=== PATIENT | male | born 1960 | race Caucasian/White ===

== ENCOUNTER 2016-11-05 15:58 | Inpatient (IN) | payer OTHER ==
[~2016-11-05] VITALS: Ht 170.2 cm; Wt 91.8 kg
[2016-11-05] VITALS (9 sets, daily range): BP systolic 107–165; BP diastolic 67–77; PULSE 88–114; RESP 15–18; TEMP 97.9–98.1; O2SAT 94–100
--- NOTE | 2016-11-05 17:47 | PD ---
HPI Chief Complaint: Edema Time Seen by Provider: 17:45 Travel History International Travel<30 days: No Contact w/Intl Traveler<30days: No Traveled to known affect area: No History of Present Illness HPI 56-year-old male is a chronic alcoholic came to the emergency room since both his legs have started to swell up and his primary care asked them to come to the ER to be checked out. Patient has history of cirrhosis. He drinks 8-10 beers a day. No history of pain. He has history of frequent falls especially when he is intoxicated. Patient started drinking this known and has had 4 beers so far as per his own admission. [facility] Past Medical History Narrative Medical List of his past medical history as reviewed from the nursing note. Social History Tobacco Use: Yes Allergies-Medications (Allergen,Severity, Reaction): Coded Allergies: No Known Allergies (Unverified , 11/05/16) Comments No known drug allergies. Reported Meds & Prescriptions Reported Meds & Active Scripts Active Reported Prilosec (Omeprazole) 20 Mg Cap Unknown Dose PO DAILY Januvia (Sitagliptin Phosphate) 100 Mg Tab 100 Mg PO DAILY Narrative Medication Awaiting for the nurse to do the medical reconciliation. Review of Systems Except as stated in HPI: all other systems reviewed are Neg Physical Exam Narrative GENERAL: Awake, alert, moderate distress, disheveled SKIN: Warm and dry. Ecchymosis bilateral lower extremity. All wound with scabs HEAD: Atraumatic. Normocephalic. EYES: Pupils equal and round. No scleral icterus. No injection or drainage. ENT: No nasal bleeding or discharge. Mucous membranes pink and moist. NECK: Trachea midline. No JVD. CARDIOVASCULAR: Regular rate and rhythm. No murmur appreciated. RESPIRATORY: No accessory muscle use. Clear to auscultation. Breath sounds equal bilaterally. GASTROINTESTINAL: Abdomen soft, non-tender, distended with possible ascites. Hepatic and splenic margins not palpable. MUSCULOSKELETAL: No obvious deformities. No clubbing. No cyanosis. Bilateral 3 + pedal edema NEUROLOGICAL: Awake and alert. No obvious cranial nerve deficits. Motor grossly within normal limits. Normal speech. PSYCHIATRIC: Appropriate mood and affect; insight and judgment normal. Data Data Last Documented VS Vital Signs Date Time Temp Pulse Resp B/P Pulse Ox O2 Delivery O2 Flow Rate FiO2 11/05/16 20:43 97.9 104 18 107/73 96 11/05/16 18:26 Room Air Orders Complete Blood Count With Diff (11/05/16 17:50) Comprehensive Metabolic Panel (11/05/16 17:50) Prothrombin Time / Inr (Pt) (11/05/16 17:50) Ct Abd/Pel W/O Iv Contrast (11/05/16 17:50) Iv Access Insert/Monitor (11/05/16 17:50) Ecg Monitoring (11/05/16 17:50) Oximetry (11/05/16 17:50) Sodium Chloride 0.9% Flush (Ns Flush) (11/05/16 18:00) Electrocardiogram (11/05/16 17:50) Direct Bilirubin (11/05/16 17:50) Thiamine Inj (Thiamine Inj) (11/05/16 18:00) B-Type Natriuretic Peptide (11/05/16 17:50) Troponin I (11/05/16 17:50) Type And Screen (11/05/16 19:13) Red Blood Cells (Rbc) (11/05/16 19:13) Blood Product Administration .UPON TRANSFUSION (11/05/16 19:13) Sodium Chlor 0.9% 250 Ml Inj (Ns 250 Ml (11/05/16 19:15) Admit Order (Ed Use Only) (11/05/16 20:43) Platelet Pheresis (11/05/16 20:44) Blood Product Administration .UPON TRANSFUSION (11/05/16 20:44) Sodium Chlor 0.9% 250 Ml Inj (Ns 250 Ml (11/05/16 20:45) Labs Laboratory Tests Test 11/05/16 11/05/16 11/05/16 18:35 19:34 19:43 White Blood Count 4.7 TH/MM3 Red Blood Count 2.55 MIL/MM3 Hemoglobin 5.8 GM/DL Hematocrit 19.3 % Mean Corpuscular Volume 75.7 FL Mean Corpuscular Hemoglobin 22.9 PG Mean Corpuscular Hemoglobin 30.2 % Concent Red Cell Distribution Width 19.6 % Platelet Count 44 TH/MM3 Mean Platelet Volume 9.1 FL Neutrophils (%) (Auto) 51.5 % Lymphocytes (%) (Auto) 36.0 % Monocytes (%) (Auto) 10.2 % Eosinophils (%) (Auto) 1.1 % Basophils (%) (Auto) 1.2 % Neutrophils # (Auto) 2.4 TH/MM3 Lymphocytes # (Auto) 1.7 TH/MM3 Monocytes # (Auto) 0.5 TH/MM3 Eosinophils # (Auto) 0.1 TH/MM3 Basophils # (Auto) 0.1 TH/MM3 CBC Comment AUTO DIFF Differential Comment AUTO DIFF CONFIRMED Platelet Estimate LOW Platelet Morphology Comment NORMAL Prothrombin Time 14.5 SEC Prothromb Time International 1.3 RATIO Ratio Sodium Level 142 MEQ/L Potassium Level 3.7 MEQ/L Chloride Level 108 MEQ/L Carbon Dioxide Level 24.2 MEQ/L Anion Gap 10 MEQ/L Blood Urea Nitrogen 8 MG/DL Creatinine 0.97 MG/DL Estimat Glomerular Filtration 80 ML/MIN Rate Random Glucose 149 MG/DL Calcium Level 7.5 MG/DL Total Bilirubin 5.2 MG/DL Direct Bilirubin 3.8 MG/DL Aspartate Amino Transf 101 U/L (AST/SGOT) Alanine Aminotransferase 38 U/L (ALT/SGPT) Alkaline Phosphatase 153 U/L Troponin I 0.04 NG/ML B-Type Natriuretic Peptide 286 PG/ML Total Protein 6.9 GM/DL Albumin 2.4 GM/DL Blood Type B POSITIVE B POSITIVE Antibody Screen NEGATIVE Crossmatch Leukocyte-Reduced Red Blood Cells Blood Bank Comment MDM Medical Decision Making Medical Screen Exam Complete: Yes Emergency Medical Condition: Yes Medical Record Reviewed: Yes Differential Diagnosis Alcoholic Cirrhosis, anasarca secondary to alcoholic cirrhosis Narrative Course 6:35 PM awaiting for the blood test results and the CAT scan to be done and resulted. Patient is getting IM thiamine. Case will be signed over to the oncoming ER physician at 7 PM. 7:16 PM hemoglobin was called from the lab as critical being 5.5. I have ordered 2 units of PRBC transfusion. [facility] will follow-up on the rest of the lab and admit the patient. Critical Care Narrative Aggregate critical care time was 30 minutes. Time to perform other separately billable procedures was not included in the critical care time. My time did not include minutes spent treating any other patients simultaneously or on activities that did not directly contribute to the patient's treatment. The services I provided to this patient were to treat and/or prevent clinically significant deterioration that could result in: Chronic alcoholic, anemia, blood transfusion I provided critical care services requiring my management, as noted below: Chart data review, documentation time, medication orders and management, vital sign assessments/reviewing monitor data, ordering and reviewing lab tests, ordering and interpreting/reviewing x-rays and diagnostic studies, care of the patient and discussion of the patient with the admitting physicians. Procedures EKG Prior to Arrival: Toro Madrigal MD Nov 05, 2016 17:47
[2016-11-05] MEDS ORDERED: SODIUM CHLORIDE 0.9% FLUSH 5 ML FLUSH IVF PRN (18:00)
[2016-11-05] MEDS ORDERED: THIAMINE HCL 200 MG/2 ML VIAL IM ONE (18:00)
[2016-11-05 19:04] LABS: AUTOMATED NEUTROPHIL # 2.4 TH/MM3 (1.8-7.7); BASOPHIL # 0.1 TH/MM3 (0-0.2); BASOPHIL % 1.2 % (0.0-2.0); EOSINOPHIL # 0.1 TH/MM3 (0-0.4); EOSINOPHIL % 1.1 % (0.0-4.0); LYMPHOCYTE # 1.7 TH/MM3 (1.0-4.8); MEAN CELL VOLUME 75.7 FL (80.0-100.0); MEAN CORPUSCULAR HEMOGLOBIN 22.9 PG (27.0-34.0); MEAN CORPUSCULAR HGB CONC 30.2 % (32.0-36.0); MONO % 10.2 % (0.0-8.0); NEUT % 51.5 % (16.0-70.0); PLATELET COUNT 44 TH/MM3 (150-450); RED BLOOD COUNT 2.55 MIL/MM3 (4.50-5.90); RED CELL DISTRIBUTION WIDTH 19.6 % (11.6-17.2); WHITE BLOOD COUNT 4.7 TH/MM3 (4.0-11.0)
[2016-11-05] MEDS ORDERED: PRIL20CA9 PO (19:06)
[2016-11-05] MEDS ORDERED: SITA1TAB2 PO (19:06)
[2016-11-05 19:10] LABS: HEMO FLAGS AUTO DIFF
[2016-11-05 19:13] LABS: HEMATOCRIT 19.3 % (39.0-51.0)
[2016-11-05 19:15] LABS: INTERNATIONAL NORMALIZED RATIO 1.3 RATIO; PROTHROMBIN TIME - PATIENT 14.5 SEC (9.8-11.6)
[2016-11-05] MEDS ORDERED: SODIUM CHLOR 0.9% 250 ML INJ 250 ML IV ONE ×2 (19:15→20:45)
--- NOTE | 2016-11-05 19:22 | RADRPT ---
EXAM DATE/TIME: 11/05/2016 18:55 [facility] COMPARISON: No previous studies available for comparison. INDICATIONS : Abdominal pain, possible ascites. ORAL CONTRAST: No oral contrast ingested. RADIATION DOSE: 16.67 CTDIvol (mGy) MEDICAL HISTORY : Diabetes mellitus type 2. Hepatitis C. SURGICAL HISTORY : None. ENCOUNTER: Initial ACUITY: 1 week PAIN SCALE: 5/10 LOCATION: Bilateral abdomen TECHNIQUE: Volumetric scanning of the abdomen and pelvis was performed. Using automated exposure control and ad justment of the mA and/or kV according to patient size, radiation dose was kept as low as reasonably achievable to obtain optimal diagnostic quality images. FINDINGS: The heart is enlarged. Small left pleural effusion is noted. There is trace ascites. Liver is free of focal defects. Spleen is prominent. A gallstone is present in a benign-appearing gallbladder. There is adenopathy in the abdomen. The right adrenal gland is normal. The left adrenal gland is ab normal. Right and left kidney is unremarkable. Pelvic contents show only ascites. CONCLUSION: 1. Markedly abnormal CT scan of the abdomen. Lack of intravenous contrast makes delineation of furt her abnormalities difficult. 2. I cannot exclude neoplasm, acute cholecystitis. Doyle Hurt MD FACR on November 05, 2016 at 19:10 Board Certified Radiologist. This report was verified electronically.
[2016-11-05 19:43] LABS: PLATELET ESTIMATE SMEAR LOW (NORMAL); PLATELET MORPHOLOGY NORMAL (NORMAL); SCAN/DIFF AUTO DIFF CONFIRMED
[2016-11-05 19:53] LABS: ANION GAP 10 MEQ/L (5-15); AST (GOT) 101 U/L (15-37); BICARBONATE 24.2 MEQ/L (21.0-32.0); BLOOD UREA NITROGEN 8 MG/DL (7-18); CHLORIDE 108 MEQ/L (98-107); GLOMERULAR FILTRATION RATE 80 ML/MIN (>89); POTASSIUM 3.7 MEQ/L (3.5-5.1); SODIUM (NA) 142 MEQ/L (136-145)
[2016-11-05 19:58] LABS: ALKALINE PHOSPHATASE 153 U/L (45-117); ALT (GPT) 38 U/L (12-78); TOTAL BILIRUBIN ADULT 5.2 MG/DL (0.2-1.0)
--- NOTE | 2016-11-05 20:50 | PD ---
Physical Exam Date Seen by Provider: Nov 05, 2016 Time Seen by Provider: 19:00 Narrative Patient signed out to me by Dr. Burgos and at 7 PM, please see previous history for further information. Laboratory Tests Test 11/05/16 18:35 Red Blood Count 2.55 MIL/MM3 (4.50-5.90) Hemoglobin 5.8 GM/DL (13.0-17.0) Hematocrit 19.3 % (39.0-51.0) Mean Corpuscular Volume 75.7 FL (80.0-100.0) Mean Corpuscular Hemoglobin 22.9 PG (27.0-34.0) Mean Corpuscular Hemoglobin 30.2 % Concent (32.0-36.0) Red Cell Distribution Width 19.6 % (11.6-17.2) Platelet Count 44 TH/MM3 (150-450) Monocytes (%) (Auto) 10.2 % (0.0-8.0) Platelet Estimate LOW (NORMAL) Prothrombin Time 14.5 SEC (9.8-11.6) Chloride Level 108 MEQ/L (98-107) Estimat Glomerular Filtration 80 ML/MIN (>89) Rate Random Glucose 149 MG/DL (74-106) Calcium Level 7.5 MG/DL (8.5-10.1) Total Bilirubin 5.2 MG/DL (0.2-1.0) Direct Bilirubin 3.8 MG/DL (0.0-0.2) Aspartate Amino Transf 101 U/L (15-37) (AST/SGOT) Alkaline Phosphatase 153 U/L (45-117) B-Type Natriuretic Peptide 286 PG/ML (0-100) Albumin 2.4 GM/DL (3.4-5.0) Lab work shows significant anemia and thrombocytopenia. Transfusion of PRBCs and platelets were done in the ER. Patient denies any recent black stools. Rectal exam was done by me which shows no signs of significant masses or obvious bleeding, stool is brown, Hemoccult negative. At this point, the case was discussed with Dr. Ward for admission for further treatment. Data Data Last Documented VS Vital Signs Date Time Temp Pulse Resp B/P Pulse Ox O2 Delivery O2 Flow Rate FiO2 11/05/16 20:43 97.9 104 18 107/73 96 11/05/16 18:26 Room Air Orders Complete Blood Count With Diff (1/14/17 17:50) Comprehensive Metabolic Panel (11/05/16 17:50) Prothrombin Time / Inr (Pt) (11/05/16 17:50) Ct Abd/Pel W/O Iv Contrast (11/05/16 17:50) Iv Access Insert/Monitor (11/05/16 17:50) Ecg Monitoring (11/05/16 17:50) Oximetry (11/05/16 17:50) Sodium Chloride 0.9% Flush (Ns Flush) (11/05/16 18:00) Electrocardiogram (11/05/16 17:50) Direct Bilirubin (11/05/16 17:50) Thiamine Inj (Thiamine Inj) (11/05/16 18:00) B-Type Natriuretic Peptide (11/05/16 17:50) Troponin I (11/05/16 17:50) Type And Screen (11/05/16 19:13) Red Blood Cells (Rbc) (11/05/16 19:13) Blood Product Administration .UPON TRANSFUSION (11/05/16 19:13) Sodium Chlor 0.9% 250 Ml Inj (Ns 250 Ml (11/05/16 19:15) Admit Order (Ed Use Only) (11/05/16 20:43) Platelet Pheresis (11/05/16 20:44) Blood Product Administration .UPON TRANSFUSION (11/05/16 20:44) Sodium Chlor 0.9% 250 Ml Inj (Ns 250 Ml (11/05/16 20:45) Labs Laboratory Tests Test 11/05/16 11/05/16 11/05/16 18:35 19:34 19:43 White Blood Count 4.7 TH/MM3 Red Blood Count 2.55 MIL/MM3 Hemoglobin 5.8 GM/DL Hematocrit 19.3 % Mean Corpuscular Volume 75.7 FL Mean Corpuscular Hemoglobin 22.9 PG Mean Corpuscular Hemoglobin 30.2 % Concent Red Cell Distribution Width 19.6 % Platelet Count 44 TH/MM3 Mean Platelet Volume 9.1 FL Neutrophils (%) (Auto) 51.5 % Lymphocytes (%) (Auto) 36.0 % Monocytes (%) (Auto) 10.2 % Eosinophils (%) (Auto) 1.1 % Basophils (%) (Auto) 1.2 % Neutrophils # (Auto) 2.4 TH/MM3 Lymphocytes # (Auto) 1.7 TH/MM3 Monocytes # (Auto) 0.5 TH/MM3 Eosinophils # (Auto) 0.1 TH/MM3 Basophils # (Auto) 0.1 TH/MM3 CBC Comment AUTO DIFF Differential Comment AUTO DIFF CONFIRMED Platelet Estimate LOW Platelet Morphology Comment NORMAL Prothrombin Time 14.5 SEC Prothromb Time International 1.3 RATIO Ratio Sodium Level 142 MEQ/L Potassium Level 3.7 MEQ/L Chloride Level 108 MEQ/L Carbon Dioxide Level 24.2 MEQ/L Anion Gap 10 MEQ/L Blood Urea Nitrogen 8 MG/DL Creatinine 0.97 MG/DL Estimat Glomerular Filtration 80 ML/MIN Rate Random Glucose 149 MG/DL Calcium Level 7.5 MG/DL Total Bilirubin 5.2 MG/DL Direct Bilirubin 3.8 MG/DL Aspartate Amino Transf 101 U/L (AST/SGOT) Alanine Aminotransferase 38 U/L (ALT/SGPT) Alkaline Phosphatase 153 U/L Troponin I 0.04 NG/ML B-Type Natriuretic Peptide 286 PG/ML Total Protein 6.9 GM/DL Albumin 2.4 GM/DL Blood Type B POSITIVE B POSITIVE Antibody Screen NEGATIVE Crossmatch Leukocyte-Reduced Red Blood Cells Blood Bank Comment [facility] Medical Record Reviewed: Yes Supervised Visit with JAMILAH: No HemaPrompt Test Point of Care Internal Pos. & Neg. Controls: Passed Fecal Specimen Occult Blood: Negative Diagnosis Primary Impression: Severe anemia Additional Impression: THROMBOCYTOPENIA, UNSPECIFIED Admitting Information Admitting Physician Requests: Admit Fredis Alcazar MD Nov 05, 2016 20:50
[2016-11-05] MEDS ORDERED: ONDANSETRON HCL 4 MG/2 ML VIAL IVP PRN (21:15)
[2016-11-05] MEDS ORDERED: NALOXONE HCL 0.4 MG/ML AMP IV PRN (21:15)
[2016-11-05] MEDS ORDERED: SODIUM CHLORIDE 0.9% FLUSH 5 ML FLUSH FLUSH PRN (21:15)
[2016-11-05] MEDS ORDERED: DEXTROSE 50% IN WATER 50 ML VIAL(D50) IV PUSH PRN (21:30)
[2016-11-05] MEDS ORDERED: GLUCAGON 1 MG/ML VIAL OTHER PRN (21:30)
[2016-11-05] MEDS: SODIUM CHLOR 0.45% 1000 ML INJ 1,000 ML IV SCH (22:52)
[2016-11-05] MEDS: SODIUM CHLORIDE 0.9% IV SCH (22:52)
[2016-11-05] MEDS: THIAMINE IV SCH (22:52)
[2016-11-05] MEDS: PANTOPRAZOLE SODIUM 40 MG VIAL IV PUSH SCH (22:52)
[2016-11-06] VITALS (14 sets, daily range): BP systolic 115–158; BP diastolic 63–87; PULSE 84–109; RESP 17–18; TEMP 96.1–99.3; O2SAT 91–98
[2016-11-06 05:18] LABS: BICARBONATE 25.1 MEQ/L (21.0-32.0); POTASSIUM 3.4 MEQ/L (3.5-5.1)
[2016-11-06 05:28] LABS: AUTOMATED NEUTROPHIL # 1.8 TH/MM3 (1.8-7.7); BASOPHIL % 1.4 % (0.0-2.0); EOSINOPHIL # 0.1 TH/MM3 (0-0.4); EOSINOPHIL % 2.1 % (0.0-4.0); HEMATOCRIT 21.4 % (39.0-51.0); LYMPH % 31.9 % (9.0-44.0); LYMPHOCYTE # 1.1 TH/MM3 (1.0-4.8); MEAN CELL VOLUME 74.6 FL (80.0-100.0); MEAN CORPUSCULAR HEMOGLOBIN 23.7 PG (27.0-34.0); MEAN CORPUSCULAR HGB CONC 31.7 % (32.0-36.0); MONO % 10.3 % (0.0-8.0); NEUT % 54.3 % (16.0-70.0); PLATELET COUNT 64 TH/MM3 (150-450); RED BLOOD COUNT 2.87 MIL/MM3 (4.50-5.90); RED CELL DISTRIBUTION WIDTH 19.8 % (11.6-17.2); WHITE BLOOD COUNT 3.3 TH/MM3 (4.0-11.0)
[2016-11-06 05:33] LABS: CALCIUM-PROTEIN CORRECTED 7.7 MG/DL (8.5-10.1)
[2016-11-06 05:43] LABS: HEMO FLAGS AUTO DIFF
[2016-11-06] MEDS: INSULIN ASPART SUPPLEMENTAL SCALE SQ SCH ×4 (07:00→20:50)
[2016-11-06] MEDS ORDERED: FUROSEMIDE 20 MG/2 ML VIAL IV PUSH ONE (07:15)
[2016-11-06] MEDS: SODIUM CHLORIDE 0.9% FLUSH 5 ML FLUSH FLUSH SCH ×2 (09:05→20:50)
[2016-11-06] MEDS: PANTOPRAZOLE SODIUM 40 MG VIAL IV PUSH SCH ×2 (09:05→20:50)
[2016-11-06] MEDS: SODIUM CHLORIDE 0.9% IV SCH (09:14)
[2016-11-06] MEDS: THIAMINE IV SCH (09:14)
[2016-11-06 09:52] LABS: PLATELET ESTIMATE SMEAR LOW (NORMAL); PLATELET MORPHOLOGY NORMAL (NORMAL); SCAN/DIFF AUTO DIFF CONFIRMED; TARGET CELLS 1+ (NORMAL)
[2016-11-06] MEDS ORDERED: LORazepam 1 MG TAB PO PRN ×2 (10:00)
[2016-11-06] MEDS ORDERED: LORazepam 2 MG TAB PO PRN ×2 (10:00)
[2016-11-06] MEDS ORDERED: FLUMAZENIL 0.5 MG/5 ML VIAL IV PUSH PRN ×2 (10:00)
[2016-11-06] MEDS ORDERED: LORazepam 2 MG/ML VIAL IV PUSH PRN ×8 (10:00)
[2016-11-06] MEDS ORDERED: POTASSIUM CHLORIDE 20 MEQ CONTROLLED RELEASE TAB PO ONE (10:15)
--- NOTE | 2016-11-06 10:55 | MH ---
cc: MELIA CORDERO DATE OF ADMISSION: 11/05/[address] Melia Cordero. PRIMARY CARE DOCTOR Dr. Chaves. REASON FOR ADMISSION Swelling of the feet. HISTORY OF PRESENT ILLNESS The patient is a very pleasant 56-year male with significant past medical history of diabetes and peptic ulcer disease in the past. As per patient he has been drinking since his teenager time and in-between he sometimes stopped drinking. First time he stopped drinking was 1991 for a couple of years and then in between for a couple of months to a year or two. But for the past couple of years he is drinking continuously. He usually drinks beer. He occasionally drinks hard liquor. But he is drinking 8 to 10 beers a day, sometimes tall beer cans and sometimes small beer cans. This is his usual and for the past couple of months he has swelling of both feet and at the end of the day it hurts, so he went to Dr. Chaves's office Monday who told him to come to the ER and so he came to the ER yesterday. In the ER he was evaluated by the ER physician and found out that the patient had anemia, hemoglobin of 5.8, for which it was recommended for admission. ER physician did rectal examination that showed brown stool and negative hemoccult. Blood transfusion was given, two units yesterday and it increased the hemoglobin to 6.8 and hematocrit from 19.3 to 21.4. The patient has no abdominal pain. He denies any chest pain, diaphoresis or palpitations. He has no diarrhea. Normal stools yesterday morning, he had a brown stool. He has no genitourinary symptoms. He has somewhat low energy. No fever, no chills. There is no headache or dizziness. The patient denies any cough. Because of his anemia and swelling of the feet the patient was recommended admission and being seen in his room. At present the patient has no other complaint as described above. But he has some depression. He denies any suicidal ideation or thoughts. It was witnessed by RN plant operations coordinator. PAST MEDICAL HISTORY Diabetes, peptic ulcer disease. MEDICATIONS Prilosec and Januvia. ALLERGIES NO KNOWN DRUG ALLERGIES. SOCIAL HISTORY The patient does not smoke. He used to do occasional IV drugs and marijuana in the remote past. But for a long time he is not doing any drugs. He is not . Drinking as described above in the history of present illness. FAMILY HISTORY Father at the age of 80, as per the patient. Mother is old age in 80s and she starting falling. He has three brothers, he does not know any medical condition they have. REVIEW OF SYSTEMS As described above in the history of present illness, otherwise negative for 10 systems. PHYSICAL EXAMINATION GENERAL: The patient is alert and oriented, well-built, well-nourished, lying on bed without any apparent distress. VITAL SIGNS: The patient is afebrile, pulse is 98, respiratory rate is 18, blood pressure 136/71, pulse ox of 92% on room air. HEENT: Head is atraumatic, normocephalic. Eyes, negative conjunctivae. No icterus. Mouth unremarkable. NECK: Supple. No increased JVD. Central trachea. RESPIRATORY SYSTEM: Chest clear to auscultation. CVS: S1, S2 audible. I am unable to hear any S3, gallop. GI: Abdomen soft, no organomegaly. Positive bowel sounds. MUSCULOSKELETAL: Extremities, no cyanosis noted. There is positive pedal edema. 1 positive up to the knee joint which was indented by SCDs. SKIN: Warm and moist. PSYCHE: Does not look depressed or anxious at present. BRIQUETTE MAKER: Alert and oriented. Normal facial features. Moving extremities. INVESTIGATIONS Hemoglobin was 5.8, today 6.8, hematocrit 21.4 today, MCV 74.6, MCH 23.7, MCHC 31.7, RDW 19.8, platelet count was 44, today it is 64. Chemistry shows potassium 3.4, random glucose 141, calcium 7.2. Protein corrected calcium 7.7. Total protein 6.1, albumin 2.4. PT 14.5, INR 1.3. Abdomen and pelvis CT was done which shows heart is enlarged. A small left pleural effusion is noted. There is trace ascites. Liver is free of focal defect. Spleen is prominent. Gallstone is present in the benign-appearing gallbladder. There is adenopathy in the abdomen. The right adrenal gland is normal. Left adrenal gland is abnormal. Right and left kidney is unremarkable. Pelvic contents shows only ascites. Total bilirubin is 5.2, direct bilirubin is 3.8, AST 101, ALT 38. Alkaline phosphatase 153. BNP is 286. EKG shows sinus rhythm at rate of 90 beats per minute without any acute ST-T wave changes. ASSESSMENT 1. Leg swelling, lower extremity swelling. 2. ETOH abuse. 3. Severe anemia, questionable acute blood loss but likely secondary to hepatic disease/because of chronic disease. 4. Thrombocytopenia secondary to hepatic disease. 5. Altered LFTs secondary to alcoholic hepatitis, questionable cirrhosis. 6. History of peptic ulcer disease. 7. Diabetes. 8. Depression. 9. Protein calorie malnutrition, moderate type. 10. Mild hypokalemia. PLAN The patient has been admitted to the floor. WA protocol for withdrawal. Psych consult for depression. Thiamine. Serum iron level. Repeat labs in the morning. GI consult. Blood transfusion has been given and will give more today. IV PPI. Monitor sugar with sliding scale insulin coverage and low-dose Novolog coverage. Repeat labs in the morning. SCDs for DVT prophylaxis. Monitor platelet count. Counseled about anti ETOH. The patient understood very well. Discussed with RN. Further recommendation to follow as per patient progress. Condition guarded. Partner will follow this patient from tomorrow. Melia Cordero MD JP/CONSTANCE /9:46 AM /10:19 AM
[2016-11-06 11:06] LABS: TRANSFERRIN IRON PROFILE 239 MG/DL (200-360)
--- NOTE | 2016-11-06 11:28 | RADRPT ---
EXAM DATE/TIME: 11/06/2016 11:00 [facility] COMPARISON: No previous studies available for comparison. INDICATIONS : Bilateral lower extremity edema. MEDICAL HISTORY : Gastroesophageal reflux disease. Ulcer. Diabetes. Hepatitis C. Cirrhosis. Anemia. Thrombocytopenia. SURGICAL HISTORY : Left ACL/MCL repair. ENCOUNTER: Initial ACUITY: 2 months PAIN SCORE: 0/10 LOCATION: Bilateral legs. TECHNIQUE: Venous ultrasound of the left and right leg was performed from the inguinal ligament to the proximal calf. Real-time, color Doppler and spectral tracing, compression and augmentation techniques were us ed. FINDINGS: RIGHT LEG: There is normal compressibility of the deep venous system from the inguinal region to the proximal ca lf. No echogenic clot is seen in the lumen of the common femoral, femoral, popliteal, and posterior tibial veins. There is a normal response of the venous system to proximal and distal augmentation an d respiration. LEFT LEG: There is normal compressibility of the deep venous system from the inguinal region to the proximal ca lf. No echogenic clot is seen in the lumen of the common femoral, femoral, popliteal, and posterior tibial veins. There is a normal response of the venous system to proximal and distal augmentation an d respiration. CONCLUSION: Normal examination. Federico Jenkins MD on November 06, 2016 at 11:26 Board Certified Radiologist. This report was verified electronically.
[2016-11-06] MEDS: SODIUM CHLOR 0.45% 1000 ML INJ 1,000 ML IV SCH ×2 (12:22→20:49)
--- NOTE | 2016-11-06 13:29 | EKG ---
Date Performed: 11/05/2016 Time Performed: 18:46:06 PTAGE: 56 years EKG: Sinus rhythm NORMAL ECG NO PREVIOUS TRACING DOCTOR: Ugo Galvin Interpretating Date/Time 11/06/2016 13:27:47
[2016-11-06] MEDS ORDERED: PANT40TA3 PO (16:39)
--- NOTE | 2016-11-06 22:01 | MB ---
cc: CHARBEL ALONZO MD DATE OF CONSULTATION 11/06/[address] Cordero REASON FOR CONSULTATION Depression. HISTORY OF PRESENT ILLNESS Mr. Dalton is a 56-year-old male with a history of alcohol use disorder who presents on a voluntary basis to the emergency department with lower extremity edema. The patient was found additionally to have significant thrombocytopenia and has been admitted to the medical floor for further management. Psychiatry was consulted to assess for depression. Reviewing the electronic medical record, I see no prior psychiatric contact within our system. The patient seen and examined. Chart reviewed. On my examination today, the patient reports that he has felt depressed "off and on" for the past several years. He links the depression to the alcohol use and says that in the past when he has not been drinking and has been taking care of himself better such as by exercising he does not feel depressed. He has been dwelling a bit lately on how he could have been doing better in life if he had not been drinking so heavily. He denies any enduring feelings of hopelessness or morbid guilt, however. He denies any focus or concentration issues. No anhedonia. He denies any suicidal or homicidal ideation. He denies any audiovisual hallucinations and I can elicit no delusional beliefs. No hypomanic or manic symptoms. The remainder of the psychiatric ROS is negative. PAST PSYCHIATRIC HISTORY The patient reports a history of alcoholism. He is not currently under the care of a psychiatrist. He has never seen psychiatry before. He has seen drug and alcohol counselors in the past. He has never been on any psychotropic medications. He denies any history of psychiatric admissions or suicide attempts. FAMILY HISTORY The patient denies a family history of serious mental illness. He reports that his brother, maternal aunt and maternal uncle all struggled with alcoholism. His niece attempted suicide. CHEMICAL DEPENDENCY HISTORY The patient reports that he has been drinking intermittently for quite some time. He says his longest sober time is 6 years following a 30-day rehab at [facility]. He has been trying to cut back his drinking lately and says that instead of the 15 beers he used to drink he now only drinks about eight beers a day. He also seldom drinks liquor or wine. He denies a history of DTs or seizures. He does report a history of job loss and DUIs related to his drinking. He also has a remote history of cocaine use. Otherwise denies any other substance use. Toxicology was not performed on admission here. SOCIAL HISTORY The patient reports that he lives with his mother. He is single and has no children. He is not presently working and says that he tried to get a job at a [employer] of the [employer] yard last week but could not work because of his lower extremity edema. He denies any or legal history. He believes in God. He denies any access to guns or firearms. PAST MEDICAL HISTORY Includes: 1. History of diabetes. 2. Hepatitis C. 3. As well as thrombocytopenia. REVIEW OF SYSTEMS The patient reports that his legs have been swelling up for the last one or two months and are quite painful. Otherwise no reported physical complaints presently. PHYSICAL EXAMINATION The physical examination was completed by the primary team. On my examination today, the patient appears to be in mild acute distress due to his lower extremity edema and associated pain. No abnormal motor movements noted. No signs of withdrawal noted. Labs and vital signs reviewed. On CBC, I note that the patient has pancytopenia with white blood cells of 3.3, hemoglobin of 6.8 and platelet count of 664. CMP is significant for hypocalcemia, hypokalemia and AST predominant transaminitis. BNP is elevated. The patient does not have significant coagulopathy. IMAGING Abdominal / pelvis CT is significant for lymphadenopathy in the abdomen for which neoplasm cannot be ruled out. MENTAL STATUS EXAM The patient is in hospital gown. He is fairly well-groomed. He is awake, alert and oriented x3. He is able to spell the word world forward and backward. There is no evidence of delirium. No abnormal motor movements noted. Speech is within normal limits for rate, tone and volume. Language and fund of knowledge seem average for age. Mood is perhaps somewhat depressed but not severely so. Affect is somewhat blunted. Thought process linear. No loosening of associations. No evident delusions. Denies audiovisual hallucinations. Denies suicidal or homicidal ideation. Insight and judgment are fair generally but fair to poor at best with regards to his alcohol use disorder. 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 This is a 56-year-old male with psychiatric history as detailed above who is presently medically admitted on a voluntary basis with lower extremity edema and thrombocytopenia related to his history of heavy chronic alcohol use. Psychiatry was consulted to assess for depression. The patient gives a history of mild depressive symptomatology related to his drinking and notes that his symptoms remit when he quits. I suspect an alcohol induced mood disorder. The severity of the patient's depression presently is mild and the patient is denying any suicidal or homicidal ideation. I have discussed with the patient his pharmacotherapeutic options for the management of depression and the patient declines any pharmacotherapy for this at this time. He is willing to accept an outpatient psychiatric referral and should be provided with one on discharge. I think the bigger issue here is his alcohol use disorder, and I have discussed with him the need for intensive chemical dependency followup after discharge and recommended that he return to the residential rehabilitation that earned him six years of sobriety in the past. However, he is insistent that he will do fine with AA alone. I am somewhat pessimistic about the likelihood of success of this lower intensity intervention. The patient does not meet Torres ACT criteria at this time. He does not require inpatient psychiatric services at this time. Should the patient desire to discuss chemical dependency rehabilitation options or antidepressant management options more in the future, I am happy to return to see the patient. Otherwise I have no specific recommendations at this time. Thank you very much for this consultation. Charbel THOMPSON /6:12 PM /9:45 PM AUTUMN
--- NOTE | 2016-11-06 22:06 | PD.CONS ---
HPI History of Present Illness This is a 56 year old male whom we are asked to evaluate for profound anemia apparently the patient had been complaining of lower extremity swelling and 1 cc primary care physician who referred him to the ER where he was found to have profound anemia and it is of the iron deficiency type the patient denies any abdominal pain nausea vomiting diarrhea constipation he does report rare occasions of black stool he does report occasional use of nonsteroidals he denies any hematemesis coffee-ground emesis denies any hematochezia but reports prior history of peptic ulcer disease and he does have diabetes and had been also complaining of lower extremity pain and that is why he was using the nonsteroidals also noted on admission is a abnormal CT with what looks like lymphadenopathy in addition to elevated liver function tests in a pattern that suggests acute alcoholic hepatitis the patient admits to drinking alcohol on a regular basis PFSH Past Medical History PAST MEDICAL HISTORY Diabetes, peptic ulcer disease. Alcoholism Coded Allergies: No Known Allergies (Unverified , 11/05/16) Medications MEDICATIONS Prilosec and Januvia. Family History Noncontributory Social History Patient admits to drinking alcohol Review of Systems ROS Review of systems Patient denies any headache dizziness blurry vision, denies any chest pain shortness of breath cough fever chills, Denies any palpitations or fatigue denies any polyuria dysuria hematuria, denies any numbness tingling or weakness, denies any skin rash pruritus or jaundice, denies any easy bruising or bleeding tendency, denies any recent change in mood GI Exam Vitals I&O Vital Signs Date Time Temp Pulse Resp B/P Pulse Ox O2 Delivery O2 Flow Rate FiO2 11/06/16 17:35 99.1 85 18 156/80 96 11/06/16 17:19 97.6 84 18 151/87 95 11/06/16 16:00 97.9 97 18 150/72 96 11/06/16 13:15 98.2 92 18 158/77 93 11/06/16 10:13 98.5 93 18 124/66 94 11/06/16 09:58 98.1 93 18 131/70 94 11/06/16 08:00 97.7 94 18 124/67 91 11/06/16 03:45 97.8 98 18 126/71 92 11/06/16 00:55 98.4 95 18 120/67 92 11/06/16 00:40 97.0 109 18 115/63 98 11/06/16 00:00 97.1 109 18 115/63 98 11/05/16 23:39 104 11/05/16 22:48 88 18 139/71 98 11/05/16 22:25 98.1 89 18 132/71 98 Room Air I/O 11/05/16 11/05/16 11/05/16 11/06/16 11/06/16 11/06/16 07:00 15:00 23:00 07:00 15:00 23:00 Intake Total 755 ml 1396 ml 1989 ml Output Total 1000 ml Balance 755 ml 1396 ml 989 ml Intake Oral 480 ml 1200 ml IV Total 211 ml 489 ml Packed Cells 375 ml 325 ml 300 ml Platelets 380 ml 380 ml Output Urine Total 1000 ml # Voids 2 8 # Bowel Movements 0 2 Imaging Last Impressions Lower Extremity Ultrasound 11/06/16 0000 Signed Impressions: Service Date/Time: Sunday, November 06, 2016 11:00 - CONCLUSION: Normal examination. Federico Jenkins MD Abdomen/Pelvis CT 11/05/16 1750 Signed Impressions: Service Date/Time: Saturday, November 05, 2016 18:55 - CONCLUSION: 1. Markedly abnormal CT scan of the abdomen. Lack of intravenous contrast makes delineation of further abnormalities difficult. 2. I cannot exclude neoplasm, acute cholecystitis. Doyle Hurt MD FACR Laboratory Test 11/06/16 11/06/16 04:30 07:15 White Blood Count 3.3 TH/MM3 Red Blood Count 2.87 MIL/MM3 Hemoglobin 6.8 GM/DL Hematocrit 21.4 % Mean Corpuscular Volume 74.6 FL Mean Corpuscular Hemoglobin 23.7 PG Mean Corpuscular Hemoglobin 31.7 % Concent Red Cell Distribution Width 19.8 % Platelet Count 64 TH/MM3 Mean Platelet Volume 8.1 FL Neutrophils (%) (Auto) 54.3 % Lymphocytes (%) (Auto) 31.9 % Monocytes (%) (Auto) 10.3 % Eosinophils (%) (Auto) 2.1 % Basophils (%) (Auto) 1.4 % Neutrophils # (Auto) 1.8 TH/MM3 Lymphocytes # (Auto) 1.1 TH/MM3 Monocytes # (Auto) 0.3 TH/MM3 Eosinophils # (Auto) 0.1 TH/MM3 Basophils # (Auto) 0.0 TH/MM3 CBC Comment AUTO DIFF Differential Comment AUTO DIFF CONFIRMED Platelet Estimate LOW Platelet Morphology Comment NORMAL Target Cells 1+ Sodium Level 141 MEQ/L Potassium Level 3.4 MEQ/L Chloride Level 106 MEQ/L Carbon Dioxide Level 25.1 MEQ/L Anion Gap 10 MEQ/L Blood Urea Nitrogen 7 MG/DL Creatinine 0.82 MG/DL Estimat Glomerular Filtration 97 ML/MIN Rate Random Glucose 141 MG/DL Calcium Level 7.2 MG/DL Protein Corrected Calcium 7.7 MG/DL Iron Level 16 MCG/DL Total Iron Binding Capacity 335 MCG/DL Percent Iron Saturation 4.8 % Total Protein 6.1 GM/DL Blood Type B POSITIVE Crossmatch Leukocyte-Reduced Red Blood Cells Blood Bank Comment Physical Examination HEENT: Pupils round and reactive to light; normocephalic; atraumatic; no jaundice. Throat is clear. NECK: Neck is supple, no JVD, no lymphadenopathy. CHEST: Chest is clear to auscultation and percussion. CARDIAC: Regular rate and rhythm with no murmur gallop or rubs. ABDOMEN: Soft, nondistended, nontender; no hepatosplenomegaly; bowel sounds are present in all four quadrants. EXTREMITIES: No clubbing, cyanosis, or edema present in lower extremities SKIN: Normal; no rash; no jaundice. ORTHODONTIST: No focal deficits; alert and oriented times three. Assessment and Plan Plan 1. Profound iron deficiency anemia 2. ETOH abuse. 3. Acute alcoholic hepatitis 4. Abnormal imaging of the abdomen with noted lymphadenopathy 5. Diabetes with possible complications PLAN At this point the patient is advised to quit alcohol We will pursue upper endoscopy Agree with current supportive care Monitor labs Transfuse as needed PPI We'll discuss with radiology best option for further evaluation of the abnormal findings on CT Will obtain tumor markers Heron Manzanares MD Nov 06, 2016 22:06
[2016-11-06] MEDS ORDERED: SODIUM CHLORID 0.9% 500 ML IV SCH (23:15)
[2016-11-06] MEDS: LACTATED RINGER'S 1000 ML IV SCH (23:15)
[2016-11-06] MEDS ORDERED: INSULIN HUMAN REGULAR 1,000 UNITS/10 ML VIAL SQ PRN (23:15)
[2016-11-06 23:20] LABS: AUTOMATED NEUTROPHIL # 2.6 TH/MM3 (1.8-7.7); BASOPHIL # 0.1 TH/MM3 (0-0.2); BASOPHIL % 1.4 % (0.0-2.0); EOSINOPHIL % 0.7 % (0.0-4.0); HEMATOCRIT 28.7 % (39.0-51.0); LYMPH % 23.1 % (9.0-44.0); MEAN CORPUSCULAR HEMOGLOBIN 23.5 PG (27.0-34.0); MEAN CORPUSCULAR HGB CONC 31.4 % (32.0-36.0); MONO % 13.7 % (0.0-8.0); NEUT % 61.1 % (16.0-70.0); PLATELET COUNT 57 TH/MM3 (150-450); RED BLOOD COUNT 3.83 MIL/MM3 (4.50-5.90); RED CELL DISTRIBUTION WIDTH 19.2 % (11.6-17.2); WHITE BLOOD COUNT 4.3 TH/MM3 (4.0-11.0)
[2016-11-06 23:24] LABS: HEMO FLAGS AUTO DIFF
[2016-11-06 23:46] LABS: OVALOCYTES 1+ (NORMAL); PLATELET ESTIMATE SMEAR LOW (NORMAL); PLATELET MORPHOLOGY NORMAL (NORMAL); SCAN/DIFF AUTO DIFF CONFIRMED
[2016-11-07] VITALS (7 sets, daily range): BP systolic 136–165; BP diastolic 78–85; PULSE 87–103; RESP 16–19; TEMP 96.6–98.7; O2SAT 94–99
[2016-11-07 06:15] LABS: HEMATOCRIT 30.5 % (39.0-51.0); MEAN CELL VOLUME 75.9 FL (80.0-100.0); MEAN CORPUSCULAR HGB CONC 31.6 % (32.0-36.0); PLATELET COUNT 60 TH/MM3 (150-450); RED BLOOD COUNT 4.01 MIL/MM3 (4.50-5.90); RED CELL DISTRIBUTION WIDTH 18.9 % (11.6-17.2); WHITE BLOOD COUNT 4.9 TH/MM3 (4.0-11.0)
[2016-11-07 06:20] LABS: REVIEW FLAG FINAL
[2016-11-07 06:31] LABS: BICARBONATE 24.2 MEQ/L (21.0-32.0); POTASSIUM 3.6 MEQ/L (3.5-5.1)
[2016-11-07 06:35] LABS: INDIRECT BILIRUBIN 2.6 MG/DL (0.0-0.8); TOTAL BILIRUBIN ADULT 8.2 MG/DL (0.2-1.0)
[2016-11-07] MEDS: INSULIN ASPART SUPPLEMENTAL SCALE SQ SCH ×4 (07:00→20:46)
[2016-11-07] MEDS: SODIUM CHLORIDE 0.9% FLUSH 5 ML FLUSH FLUSH SCH ×2 (08:20→20:46)
[2016-11-07] MEDS: SODIUM CHLORIDE 0.9% IV SCH (08:20)
[2016-11-07] MEDS: THIAMINE IV SCH (08:20)
[2016-11-07] MEDS: PANTOPRAZOLE SODIUM 40 MG VIAL IV PUSH SCH ×2 (08:21→20:46)
--- NOTE | 2016-11-07 11:57 | HHI.GIFU ---
Subjective Remarks Resting in bed. No active bleeding at this time. No abdominal pain. (Stacey Church) Objective Vitals I&O Vital Signs Date Time Temp Pulse Resp B/P Pulse Ox O2 Delivery O2 Flow Rate FiO2 11/07/16 08:12 98.0 95 18 160/78 96 11/07/16 04:00 98.7 98 16 136/81 95 11/07/16 00:00 98.7 96 16 165/83 94 11/06/16 20:48 91 11/06/16 20:48 99.0 91 18 148/73 95 11/06/16 20:00 99.3 93 17 149/75 94 11/06/16 17:35 99.1 85 18 156/80 96 11/06/16 17:19 97.6 84 18 151/87 95 11/06/16 16:00 97.9 97 18 150/72 96 11/06/16 13:15 98.2 92 18 158/77 93 I/O 11/06/16 11/06/16 11/06/16 11/07/16 11/07/16 11/07/16 07:00 15:00 23:00 07:00 15:00 23:00 Intake Total 1396 ml 1989 ml 760 ml 619 ml Output Total 1000 ml 750 ml 400 ml Balance 1396 ml 989 ml 10 ml 219 ml Intake Oral 480 ml 1200 ml 360 ml 0 ml IV Total 211 ml 489 ml 75 ml 619 ml Packed Cells 325 ml 300 ml 325 ml Platelets 380 ml Output Urine Total 1000 ml 750 ml 400 ml # Voids 2 8 # Bowel Movements 0 2 0 1 Laboratory Laboratory Tests Test 11/06/16 11/07/16 22:38 05:35 White Blood Count 4.3 4.9 Red Blood Count 3.83 4.01 Hemoglobin 9.0 9.6 Hematocrit 28.7 30.5 Mean Corpuscular Volume 75.0 75.9 Mean Corpuscular Hemoglobin 23.5 24.0 Mean Corpuscular Hemoglobin 31.4 31.6 Concent Red Cell Distribution Width 19.2 18.9 Platelet Count 57 60 Mean Platelet Volume 8.4 8.7 Neutrophils (%) (Auto) 61.1 Lymphocytes (%) (Auto) 23.1 Monocytes (%) (Auto) 13.7 Eosinophils (%) (Auto) 0.7 Basophils (%) (Auto) 1.4 Neutrophils # (Auto) 2.6 Lymphocytes # (Auto) 1.0 Monocytes # (Auto) 0.6 Eosinophils # (Auto) 0.0 Basophils # (Auto) 0.1 CBC Comment AUTO DIFF Differential Comment AUTO DIFF CONFIRMED Platelet Estimate LOW Platelet Morphology Comment NORMAL Ovalocytes 1+ Sodium Level 140 Potassium Level 3.6 Chloride Level 104 Carbon Dioxide Level 24.2 Anion Gap 12 Blood Urea Nitrogen 6 Creatinine 1.01 Estimat Glomerular Filtration 76 Rate Random Glucose 112 Calcium Level 7.9 Total Bilirubin 8.2 Direct Bilirubin 5.6 Indirect Bilirubin 2.6 Aspartate Amino Transf 82 (AST/SGOT) Alanine Aminotransferase 36 (ALT/SGPT) Alkaline Phosphatase 109 Total Protein 6.7 Albumin 2.4 Tumor Marker Alpha Fetoprotein 3.2 Carcinoembryonic Antigen 7.8 CA 19-9 Antigen 36.0 Imaging Last Impressions Lower Extremity Ultrasound 11/06/16 0000 Signed Impressions: Service Date/Time: Sunday, November 06, 2016 11:00 - CONCLUSION: Normal examination. Federico Jenkins MD Abdomen/Pelvis CT 11/05/16 1750 Signed Impressions: Service Date/Time: Saturday, November 05, 2016 18:55 - CONCLUSION: 1. Markedly abnormal CT scan of the abdomen. Lack of intravenous contrast makes delineation of further abnormalities difficult. 2. I cannot exclude neoplasm, acute cholecystitis. Doyle Hurt MD FACR Physical Exam HEENT: Normocephalic; atraumatic; + jaundice. Throat is clear. NECK: Neck is supple, no JVD, no lymphadenopathy. CHEST: CTA CARDIAC: Regular rate and rhythm with no murmur gallop or rubs. ABDOMEN: Soft, nondistended, nontender; no hepatosplenomegaly; bowel sounds are present in all four quadrants. EXTREMITIES: No clubbing, cyanosis, or edema. SKIN: Normal; no rash; + jaundice. TOBACCO SAMPLER: No focal deficits; alert and oriented times three. (Stacey Church) Assessment and Plan Plan ASSESSMENT: - Profound iron deficiency anemia. AFP 3.2, CEA 7.8, Ca19-9 36.0. S/p 2 units PRBC. HH 9.6/30.5. Plan for egd/colonoscopy in am. PPI. - Thrombocytopenia. S/P 2 Plt. Plt count 60. - Acute alcoholic hepatitis with elevated LFTs. T. Bili 8.2, AST 82, ALT 36, Alk Phosph 109. - Abnormal imaging of the abdomen with noted lymphadenopathy, Tumor markers are nonspecifically elevated. AFP 3.2, CEA 7.8, Ca19-9 36.0. EGD/Colonoscopy in am. Abdomen/Pelvis CT (11/05/16)----> 1. Markedly abnormal CT scan of the abdomen. Lack of intravenous contrast makes delineation of further abnormalities difficult. 2. I cannot exclude neoplasm, acute cholecystitis. - Diabetes per primary PLAN - EGD/Colonoscopy in am - Obtain consents - Clear liquids - NPO after MN - Golytely prep - PPI - CBC, PT/INR, CMP in am - Supportive care - Further recommendations to follow based on results of above - Pt seen and examined by Dr. Turcios and myself and this note is written on his behalf (Stacey Church) Physician Comments Seen and examined, CT concerning for malignancy. EGD/Colonoscopy tomorrow. Consider GS evaluation for gall bladder. (Josseline Turcios MD) Stacey Church Nov 07, 2016 11:57 Josseline Turcios MD Nov 07, 2016 15:16
[2016-11-07] MEDS: SODIUM CHLOR 0.45% 1000 ML INJ 1,000 ML IV SCH (12:12)
--- NOTE | 2016-11-07 12:55 | HHI.PR ---
Subjective Subjective Remarks no abd. pain no n/v tolerating clear liquid diet well no fever no cp no sob going for EGD/colonoscopy tomorrow has bruises to right knee, and foot, denies any recent injury Review of Systems Constitutional Constitutional Remarks 12 point ROS completed, negative except as noted above. Vitals/Results Intake & Output 11/06/16 11/06/16 11/07/16 15:00 23:00 07:00 Intake Total 1989 ml 760 ml 619 ml Output Total 1000 ml 750 ml 400 ml Balance 989 ml 10 ml 219 ml Intake Oral 1200 ml 360 ml 0 ml IV Total 489 ml 75 ml 619 ml Packed Cells 300 ml 325 ml Output Urine Total 1000 ml 750 ml 400 ml # Voids 8 # Bowel Movements 2 0 1 Vital Signs Vital Signs Date Time Temp Pulse Resp B/P Pulse Ox O2 Delivery O2 Flow Rate FiO2 11/07/16 08:12 98.0 95 18 160/78 96 11/07/16 04:00 98.7 98 16 136/81 95 11/07/16 00:00 98.7 96 16 165/83 94 11/06/16 20:48 91 11/06/16 20:48 99.0 91 18 148/73 95 11/06/16 20:00 99.3 93 17 149/75 94 11/06/16 17:35 99.1 85 18 156/80 96 11/06/16 17:19 97.6 84 18 151/87 95 11/06/16 16:00 97.9 97 18 150/72 96 11/06/16 13:15 98.2 92 18 158/77 93 CBC/BMP: 11/07/16 0535 11/07/16 0535 Lab Results Laboratory Tests Test 11/06/16 11/07/16 22:38 05:35 White Blood Count 4.3 TH/MM3 4.9 TH/MM3 Red Blood Count 3.83 MIL/MM3 4.01 MIL/MM3 Hemoglobin 9.0 GM/DL 9.6 GM/DL Hematocrit 28.7 % 30.5 % Mean Corpuscular Volume 75.0 FL 75.9 FL Mean Corpuscular Hemoglobin 23.5 PG 24.0 PG Mean Corpuscular Hemoglobin 31.4 % 31.6 % Concent Red Cell Distribution Width 19.2 % 18.9 % Platelet Count 57 TH/MM3 60 TH/MM3 Mean Platelet Volume 8.4 FL 8.7 FL Neutrophils (%) (Auto) 61.1 % Lymphocytes (%) (Auto) 23.1 % Monocytes (%) (Auto) 13.7 % Eosinophils (%) (Auto) 0.7 % Basophils (%) (Auto) 1.4 % Neutrophils # (Auto) 2.6 TH/MM3 Lymphocytes # (Auto) 1.0 TH/MM3 Monocytes # (Auto) 0.6 TH/MM3 Eosinophils # (Auto) 0.0 TH/MM3 Basophils # (Auto) 0.1 TH/MM3 CBC Comment AUTO DIFF Differential Comment AUTO DIFF CONFIRMED Platelet Estimate LOW Platelet Morphology Comment NORMAL Ovalocytes 1+ Sodium Level 140 MEQ/L Potassium Level 3.6 MEQ/L Chloride Level 104 MEQ/L Carbon Dioxide Level 24.2 MEQ/L Anion Gap 12 MEQ/L Blood Urea Nitrogen 6 MG/DL Creatinine 1.01 MG/DL Estimat Glomerular Filtration 76 ML/MIN Rate Random Glucose 112 MG/DL Calcium Level 7.9 MG/DL Total Bilirubin 8.2 MG/DL Direct Bilirubin 5.6 MG/DL Indirect Bilirubin 2.6 MG/DL Aspartate Amino Transf 82 U/L (AST/SGOT) Alanine Aminotransferase 36 U/L (ALT/SGPT) Alkaline Phosphatase 109 U/L Total Protein 6.7 GM/DL Albumin 2.4 GM/DL Tumor Marker Alpha Fetoprotein 3.2 NG/ML Carcinoembryonic Antigen 7.8 NG/ML CA 19-9 Antigen 36.0 U/ML Physical Exam General General Appearance: Well Developed, No Acute Distress, Obese Eyes Eye Exam: Pupils Equal, Pupils Reactive, Jaundice Ears & Nose Ears & Nose Exam: Nasal Mucosa Lula Throat Throat Exam: Oral Mucosa Lula & Moist Neck Neck Exam: Neck Supple, Trachea Midline Pulmonary Resp Exam: Breath Sounds Equal, Decreased Bases Cardiology CV Exam: Regular, Good Perfusion Gastrointestinal/Abdomen GI Exam: Soft, Non-Tender, Bowel Sounds Present, Non-Distended Musculoskeletal MS Exam: Joints Intact Integumentary Skin Exam: Warm, Dry Extremeties Extremities Exam: Pedal Pulses Palpable, Trace Edema Neurologic Neuro Exam: Alert, Awake, Oriented, Speech Clear, Moving All Extremities, No Focal Deficits Psychiatric Psych Exam: Appropriate Responses VTE Prophylaxis VTE Prophylaxis Device: SCDs PUD Prophylasis PUD Prophylaxis: Protonix Assessment/Plan Problem List: (1) Severe anemia (2) Pancytopenia (3) Iron deficiency anemia (4) ETOH abuse (5) Diabetes 1.5, managed as type 2 (6) Peripheral edema (7) Depression (8) Elevated liver enzymes Assessment/Plan Severe anemia, LENARD, rule out GI bleed, hx of ETOH abuse -appreciate GI input, going for colonoscopy and EGD tomorrow -HH stable -S/P transfusion of PRBC 2 units -IV PPI Thrombocytopenia, pancytopenia, platelets 44 on admit, most current 60 -S/P tx of platelets 2 units -Monitor CBC -Monitor for bleeding Depression -evaluated by psychiatry, no need for Torres Act. Likely mood disorder sec. ETOH abuse. Pt. declining medications at this time. States he will go to AA when discharged ETOH abuse with elevated LFTs. Has elevated CEA and CA 19-9 -monitor for withdrawal symptoms -[facility] protocol -ETOH counseling done -Follow LFTs DM II -Monitor sugar with sliding scale insulin coverage and low-dose Novolog coverage SCDs for DVT prophylaxis PPI for GI prophylaxis Labs in am D/W RN D/W Dr. Cordero D/W pt This patient was seen by myself and Dr. Cordero, this note is written on his behalf. Problem Qualifiers (1) Iron deficiency anemia: Qualified Code: D50.9 - Iron deficiency anemia, unspecified iron deficiency anemia type (2) Depression: Qualified Code: F32.9 - Depression, unspecified depression type Violet Best Nov 07, 2016 12:55
[2016-11-07] MEDS ORDERED: PEG (High)/E-LYTE SOLN 4000 ML BTL PO ONE (16:00)
[2016-11-08] VITALS (9 sets, daily range): BP systolic 135–161; BP diastolic 66–88; PULSE 81–93; RESP 16–20; TEMP 96.4–99.1; O2SAT 94–97
[2016-11-08 05:24] LABS: AUTOMATED NEUTROPHIL # 2.6 TH/MM3 (1.8-7.7); BASOPHIL # 0.1 TH/MM3 (0-0.2); BASOPHIL % 1.6 % (0.0-2.0); EOSINOPHIL # 0.1 TH/MM3 (0-0.4); EOSINOPHIL % 2.5 % (0.0-4.0); LYMPH % 25.9 % (9.0-44.0); LYMPHOCYTE # 1.2 TH/MM3 (1.0-4.8); MEAN CELL VOLUME 75.5 FL (80.0-100.0); MEAN CORPUSCULAR HEMOGLOBIN 24.1 PG (27.0-34.0); MEAN CORPUSCULAR HGB CONC 31.9 % (32.0-36.0); MONO % 11.8 % (0.0-8.0); NEUT % 58.2 % (16.0-70.0); PLATELET COUNT 55 TH/MM3 (150-450); WHITE BLOOD COUNT 4.5 TH/MM3 (4.0-11.0)
[2016-11-08 05:26] LABS: HEMO FLAGS AUTO DIFF
[2016-11-08 05:30] LABS: INTERNATIONAL NORMALIZED RATIO 1.5 RATIO; PROTHROMBIN TIME - PATIENT 17.1 SEC (9.8-11.6)
[2016-11-08 05:47] LABS: ALKALINE PHOSPHATASE 90 U/L (45-117); ALT (GPT) 30 U/L (12-78); ANION GAP 11 MEQ/L (5-15); AST (GOT) 64 U/L (15-37); BLOOD UREA NITROGEN 7 MG/DL (7-18); CHLORIDE 103 MEQ/L (98-107); GLOMERULAR FILTRATION RATE 92 ML/MIN (>89); POTASSIUM 3.6 MEQ/L (3.5-5.1); SODIUM (NA) 138 MEQ/L (136-145); TOTAL BILIRUBIN ADULT 7.6 MG/DL (0.2-1.0)
[2016-11-08] MEDS: INSULIN ASPART SUPPLEMENTAL SCALE SQ SCH ×4 (06:25→20:24)
[2016-11-08] MEDS: SODIUM CHLORIDE 0.9% IV SCH (08:04)
[2016-11-08] MEDS: THIAMINE IV SCH (08:04)
[2016-11-08] MEDS: PANTOPRAZOLE SODIUM 40 MG VIAL IV PUSH SCH ×2 (08:05→20:24)
[2016-11-08] MEDS: SODIUM CHLORIDE 0.9% FLUSH 5 ML FLUSH FLUSH SCH ×2 (08:05→20:24)
[2016-11-08] MEDS: LACTATED RINGER'S 1000 ML IV SCH ×2 (08:06→23:15)
[2016-11-08 08:50] LABS: PLATELET ESTIMATE SMEAR LOW (NORMAL); PLATELET MORPHOLOGY NORMAL (NORMAL); SCAN/DIFF AUTO DIFF CONFIRMED
[2016-11-08] MEDS ORDERED: PROPOFOL 200 MG/20 ML AMP IV ONE (10:04)
--- NOTE | 2016-11-08 16:09 | HHI.PR ---
Subjective Subjective Remarks S/P EGD and colonoscopy 11/08 tolerated well, mild abdominal discomfort No nausea, no vomiting No chest pain No shortness of breath No fever No active bleeding Review of Systems Constitutional Constitutional Remarks 12 point ROS completed, negative except as noted above. Vitals/Results Intake & Output 11/07/16 11/07/16 11/08/16 15:00 23:00 07:00 Intake Total 1322 ml 1200 ml 0 ml Output Total 2370 ml Balance -1048 ml 1200 ml 0 ml Intake Oral 720 ml 1200 ml 0 ml IV Total 602 ml Output Urine Total 2370 ml # Voids 1 11 5 # Bowel Movements 1 10 5 Vital Signs Vital Signs Date Time Temp Pulse Resp B/P Pulse Ox O2 Delivery O2 Flow Rate FiO2 11/08/16 13:15 97.5 81 17 161/88 96 11/08/16 10:34 86 16 133/75 96 11/08/16 10:26 99 16 110/61 93 11/08/16 10:18 98.5 90 16 111/59 94 11/08/16 09:28 98.4 93 17 139/71 96 11/08/16 08:25 96.4 84 16 135/66 94 11/08/16 04:30 98.4 93 17 139/71 96 11/08/16 00:30 97.9 93 18 159/77 97 11/07/16 20:23 103 11/07/16 20:00 96.7 87 19 147/82 99 CBC/BMP: 11/08/16 0447 11/08/16 0447 Lab Results Laboratory Tests Test 11/08/16 04:47 White Blood Count 4.5 TH/MM3 Red Blood Count 3.70 MIL/MM3 Hemoglobin 8.9 GM/DL Hematocrit 28.0 % Mean Corpuscular Volume 75.5 FL Mean Corpuscular Hemoglobin 24.1 PG Mean Corpuscular Hemoglobin 31.9 % Concent Red Cell Distribution Width 19.0 % Platelet Count 55 TH/MM3 Mean Platelet Volume 8.5 FL Neutrophils (%) (Auto) 58.2 % Lymphocytes (%) (Auto) 25.9 % Monocytes (%) (Auto) 11.8 % Eosinophils (%) (Auto) 2.5 % Basophils (%) (Auto) 1.6 % Neutrophils # (Auto) 2.6 TH/MM3 Lymphocytes # (Auto) 1.2 TH/MM3 Monocytes # (Auto) 0.5 TH/MM3 Eosinophils # (Auto) 0.1 TH/MM3 Basophils # (Auto) 0.1 TH/MM3 CBC Comment AUTO DIFF Differential Comment AUTO DIFF CONFIRMED Platelet Estimate LOW Platelet Morphology Comment NORMAL Prothrombin Time 17.1 SEC Prothromb Time International 1.5 RATIO Ratio Sodium Level 138 MEQ/L Potassium Level 3.6 MEQ/L Chloride Level 103 MEQ/L Carbon Dioxide Level 24.0 MEQ/L Anion Gap 11 MEQ/L Blood Urea Nitrogen 7 MG/DL Creatinine 0.86 MG/DL Estimat Glomerular Filtration 92 ML/MIN Rate Random Glucose 77 MG/DL Calcium Level 7.8 MG/DL Total Bilirubin 7.6 MG/DL Aspartate Amino Transf 64 U/L (AST/SGOT) Alanine Aminotransferase 30 U/L (ALT/SGPT) Alkaline Phosphatase 90 U/L Total Protein 6.2 GM/DL Albumin 2.2 GM/DL Physical Exam General General Appearance: Well Developed, No Acute Distress, Obese Eyes Eye Exam: Pupils Equal, Pupils Reactive, Jaundice Ears & Nose Ears & Nose Exam: Nasal Mucosa [place] Throat Throat Exam: Oral Mucosa [place] & Moist Neck Neck Exam: Neck Supple, Trachea Midline Pulmonary Resp Exam: Rhonchi, Decreased Bases Cardiology CV Exam: Regular, Good Perfusion Gastrointestinal/Abdomen GI Exam: Soft, Non-Tender, Bowel Sounds Present, Non-Distended Musculoskeletal MS Exam: Joints Intact Integumentary Skin Exam: Warm, Dry Extremeties Extremities Exam: Pedal Pulses Palpable, Trace Edema Neurologic Neuro Exam: Alert, Awake, Oriented, Speech Clear, Moving All Extremities, No Focal Deficits Psychiatric Psych Exam: Appropriate Responses VTE Prophylaxis VTE Prophylaxis Device: SCDs PUD Prophylasis PUD Prophylaxis: Protonix Assessment/Plan Problem List: (1) Severe anemia (2) Pancytopenia (3) Iron deficiency anemia (4) ETOH abuse (5) Diabetes 1.5, managed as type 2 (6) Peripheral edema (7) Depression (8) Elevated liver enzymes Assessment/Plan Severe anemia, LENARD, rule out GI bleed, hx of ETOH abuse -appreciate GI input -HH stable -S/P transfusion of PRBC 2 units -IV PPI -S/P EGD/Colonoscopy-portal HTN, gastropathy, gastritis, esophagitis, int. hemorrhoid, proctitis -going to IR for paracentesis Thrombocytopenia, pancytopenia, platelets 44 on admit, most current 60 -S/P tx of platelets 2 units -Monitor CBC -Monitor for bleeding Depression -evaluated by psychiatry, no need for Torres Act. Likely mood disorder sec. ETOH abuse. Pt. declining medications at this time. States he will go to AA when discharged ETOH abuse with elevated LFTs. Has elevated CEA and CA 19-9 -monitor for withdrawal symptoms -[facility] protocol -ETOH counseling done -Follow LFTs DM II -Monitor sugar with sliding scale insulin coverage and low-dose Novolog coverage SCDs for DVT prophylaxis PPI for GI prophylaxis Echo ordered Labs in am D/W RN D/W Dr. Lopez D/W pt This patient was seen by myself and , this note is written on his behalf. Problem Qualifiers (1) Iron deficiency anemia: Qualified Code: D50.9 - Iron deficiency anemia, unspecified iron deficiency anemia type (2) Depression: Qualified Code: F32.9 - Depression, unspecified depression type Violet Best Nov 08, 2016 16:09
--- NOTE | 2016-11-08 16:26 | RADRPT ---
EXAM DATE/TIME: 11/08/2016 16:08 [facility] COMPARISON: No previous studies available for comparison. INDICATIONS : Abdominal distention. MEDICAL HISTORY : Cirrhosis. Hepatitis C. GERD. Diabetes. Anemia. Thrombocytopenia. Lower extremity edema. ETOH abuse . Peptic ulcer disease. SURGICAL HISTORY : Colonoscopy. EGD. ENCOUNTER: Initial ACUITY: 1 day PAIN SCORE: 0/10 LOCATION: Bilateral abdomen. AREA EVALUATED: Abdominal quadrants. FINDINGS: Imaging of the abdomen and pelvis was performed to evaluate for ascites for possible paracentesis. N o significant free fluid noted. CONCLUSION: No evidence of significant ascites. Walker Gore MD on November 08, 2016 at 16:24 Board Certified Radiologist. This report was verified electronically.
[2016-11-09] VITALS (8 sets, daily range): BP systolic 142–159; BP diastolic 73–90; PULSE 81–106; RESP 16–18; TEMP 98.2–98.9; O2SAT 93–96
[2016-11-09] MEDS: INSULIN ASPART SUPPLEMENTAL SCALE SQ SCH ×4 (05:26→20:30)
[2016-11-09 06:44] LABS: MEAN CORPUSCULAR HGB CONC 31.6 % (32.0-36.0); PLATELET COUNT 56 TH/MM3 (150-450); RED BLOOD COUNT 3.81 MIL/MM3 (4.50-5.90); RED CELL DISTRIBUTION WIDTH 19.6 % (11.6-17.2); WHITE BLOOD COUNT 4.6 TH/MM3 (4.0-11.0)
[2016-11-09 06:47] LABS: REVIEW FLAG FINAL
[2016-11-09 07:11] LABS: TOTAL BILIRUBIN ADULT 6.6 MG/DL (0.2-1.0)
[2016-11-09] MEDS: PANTOPRAZOLE SODIUM 40 MG VIAL IV PUSH SCH ×2 (08:18→20:30)
[2016-11-09] MEDS: SODIUM CHLORIDE 0.9% IV SCH (08:18)
[2016-11-09] MEDS: THIAMINE IV SCH (08:18)
[2016-11-09] MEDS: SODIUM CHLORIDE 0.9% FLUSH 5 ML FLUSH FLUSH SCH ×2 (08:18→20:30)
--- NOTE | 2016-11-09 09:23 | HHI.PR ---
Subjective Subjective Remarks S/P EGD and colonoscopy 11/08 tolerated well, mild abdominal discomfort No nausea, no vomiting No chest pain No shortness of breath No fever No active bleeding leg pain, shooting pain, able to walk okay (Violet Best) Review of Systems Constitutional Constitutional Remarks 12 point ROS completed, negative except as noted above. (Violet Best) Vitals/Results Intake & Output 11/08/16 11/08/16 11/09/16 15:00 23:00 07:00 Intake Total 880 ml 720 ml 480 ml Balance 880 ml 720 ml 480 ml Intake Oral 480 ml 720 ml 480 ml Other 400 ml # Voids 3 2 5 # Bowel Movements 0 0 Vital Signs Vital Signs Date Time Temp Pulse Resp B/P Pulse Ox O2 Delivery O2 Flow Rate FiO2 11/09/16 08:00 98.9 86 18 146/78 95 11/09/16 04:16 98.7 89 16 146/73 96 11/08/16 23:50 99.1 83 20 154/84 95 11/08/16 20:35 98.7 84 19 135/69 95 11/08/16 20:19 85 11/08/16 16:14 97.2 86 18 145/80 96 11/08/16 13:15 97.5 81 17 161/88 96 11/08/16 10:34 86 16 133/75 96 11/08/16 10:26 99 16 110/61 93 11/08/16 10:18 98.5 90 16 111/59 94 11/08/16 09:28 98.4 93 17 139/71 96 (Violet Best) CBC/BMP: 11/09/16 0614 11/08/16 0447 Lab Results Laboratory Tests Test 11/09/16 06:14 White Blood Count 4.6 TH/MM3 Red Blood Count 3.81 MIL/MM3 Hemoglobin 9.1 GM/DL Hematocrit 29.0 % Mean Corpuscular Volume 76.0 FL Mean Corpuscular Hemoglobin 24.0 PG Mean Corpuscular Hemoglobin 31.6 % Concent Red Cell Distribution Width 19.6 % Platelet Count 56 TH/MM3 Mean Platelet Volume 8.6 FL Total Bilirubin 6.6 MG/DL Direct Bilirubin 4.6 MG/DL Indirect Bilirubin 2.0 MG/DL Aspartate Amino Transf 55 U/L (AST/SGOT) Alanine Aminotransferase 29 U/L (ALT/SGPT) Alkaline Phosphatase 91 U/L Total Protein 6.4 GM/DL Albumin 2.2 GM/DL (EstephaniaViolet G. SENIOR QUALITY CONTROL INSPECTOR) Physical Exam General General Appearance: Well Developed, No Acute Distress, Obese (GrossViolet G. SENIOR QUALITY CONTROL INSPECTOR) Eyes Eye Exam: Pupils Equal, Pupils Reactive, Jaundice (EstephaniaViolet G. SENIOR QUALITY CONTROL INSPECTOR) Ears & Nose Ears & Nose Exam: Nasal Mucosa [place] (GrossViolet G. SENIOR QUALITY CONTROL INSPECTOR) Throat Throat Exam: Oral Mucosa [place] & Moist (GrossViolet G. SENIOR QUALITY CONTROL INSPECTOR) Neck Neck Exam: Neck Supple, Trachea Midline (GrossViolet G. SENIOR QUALITY CONTROL INSPECTOR) Pulmonary Resp Exam: Rhonchi, Decreased Bases (GrossViolet G. SENIOR QUALITY CONTROL INSPECTOR) Cardiology CV Exam: Regular, Good Perfusion (GrossViolet G. SENIOR QUALITY CONTROL INSPECTOR) Gastrointestinal/Abdomen GI Exam: Soft, Non-Tender, Bowel Sounds Present, Non-Distended (Violet Best G. SENIOR QUALITY CONTROL INSPECTOR) Musculoskeletal MS Exam: Joints Intact (GrossViolet G. SENIOR QUALITY CONTROL INSPECTOR) Integumentary Skin Exam: Warm, Dry (GrossViolet G. SENIOR QUALITY CONTROL INSPECTOR) Extremeties Extremities Exam: Pedal Pulses Palpable, Trace Edema (Violet Best G. SENIOR QUALITY CONTROL INSPECTOR) Neurologic Neuro Exam: Alert, Awake, Oriented, Speech Clear, Moving All Extremities, No Focal Deficits (GrossViolet G. SENIOR QUALITY CONTROL INSPECTOR) Psychiatric Psych Exam: Appropriate Responses (EstephaniaViolet G. SENIOR QUALITY CONTROL INSPECTOR) VTE Prophylaxis VTE Prophylaxis Device: SCDs (Violet Best G. SENIOR QUALITY CONTROL INSPECTOR) PUD Prophylasis PUD Prophylaxis: Protonix (EstephaniaViolet G. SENIOR QUALITY CONTROL INSPECTOR) Assessment/Plan Problem List: (1) Severe anemia (2) Pancytopenia (3) Iron deficiency anemia (4) ETOH abuse (5) Diabetes 1.5, managed as type 2 (6) Peripheral edema (7) Depression (8) Elevated liver enzymes Assessment/Plan Severe anemia, LENARD, rule out GI bleed, hx of ETOH abuse -appreciate GI input -HH stable -S/P transfusion of PRBC 2 units -IV PPI -S/P EGD/Colonoscopy-portal HTN, gastropathy, gastritis, esophagitis, int. hemorrhoid, proctitis -going to IR for paracentesis today Thrombocytopenia, pancytopenia, platelets 44 on admit, most current 60 -S/P tx of platelets 2 units -Monitor CBC -Monitor for bleeding Depression -evaluated by psychiatry, no need for Torres Act. Likely mood disorder sec. ETOH abuse. Pt. declining medications at this time. States he will go to AA when discharged ETOH abuse with elevated LFTs. Has elevated CEA and CA 19-9 -monitor for withdrawal symptoms -[facility] -ETOH counseling done -Follow LFTs DM II -Monitor sugar with sliding scale insulin coverage and low-dose Novolog coverage SCDs for DVT prophylaxis PPI for GI prophylaxis Echo pending Overall improved, hopefully discharge tomorrow D/W RN D/W Dr. Lopez D/W pt This patient was seen by myself and , this note is written on his behalf. (Violet Best) Assessment/Plan pt is seen & examined d/w PT d/w Violet d/w Dr Turcios , US abd didn't reveal sig ascites , we decided interval f/u imaging in 3 months , if LN persist/worsen than possible bx CT guided or Laparoscopic cont current tx await echo cont current tx will start Diuresing pt ss for d/c planning will f/u (Richy Lopez MD) Problem Qualifiers (1) Iron deficiency anemia: Qualified Code: D50.9 - Iron deficiency anemia, unspecified iron deficiency anemia type (2) Depression: Qualified Code: F32.9 - Depression, unspecified depression type Violet Best Nov 09, 2016 09:23 Richy Lopez MD Nov 09, 2016 11:12
--- NOTE | 2016-11-09 15:22 | HHI.GIFU ---
Subjective Remarks Resting in bed. No n/v. No abdominal pain. No bleeding. Tolerating diet. ( Stacey Church [place] COLINDRES) Objective Vitals I&O Vital Signs Date Time Temp Pulse Resp B/P Pulse Ox O2 Delivery O2 Flow Rate FiO2 11/09/16 12:00 98.6 90 18 144/79 93 11/09/16 08:00 98.9 86 18 146/78 95 11/09/16 04:16 98.7 89 16 146/73 96 11/08/16 23:50 99.1 83 20 154/84 95 11/08/16 20:35 98.7 84 19 135/69 95 11/08/16 20:19 85 11/08/16 16:14 97.2 86 18 145/80 96 I/O 11/08/16 11/08/16 11/08/16 11/09/16 11/09/16 11/09/16 07:00 15:00 23:00 07:00 15:00 23:00 Intake Total 0 ml 880 ml 720 ml 480 ml Balance 0 ml 880 ml 720 ml 480 ml Intake Oral 0 ml 480 ml 720 ml 480 ml Other 400 ml # Voids 5 3 2 5 # Bowel Movements 5 0 0 Laboratory Laboratory Tests Test 11/09/16 06:14 White Blood Count 4.6 Red Blood Count 3.81 Hemoglobin 9.1 Hematocrit 29.0 Mean Corpuscular Volume 76.0 Mean Corpuscular Hemoglobin 24.0 Mean Corpuscular Hemoglobin 31.6 Concent Red Cell Distribution Width 19.6 Platelet Count 56 Mean Platelet Volume 8.6 Total Bilirubin 6.6 Direct Bilirubin 4.6 Indirect Bilirubin 2.0 Aspartate Amino Transf 55 (AST/SGOT) Alanine Aminotransferase 29 (ALT/SGPT) Alkaline Phosphatase 91 Total Protein 6.4 Albumin 2.2 Imaging Last Impressions Abdomen Ultrasound 11/08/16 0000 Signed Impressions: Service Date/Time: Tuesday, November 08, 2016 16:08 - CONCLUSION: No evidence of significant ascites. Walker Gore MD Lower Extremity Ultrasound 11/06/16 0000 Signed Impressions: Service Date/Time: Sunday, November 06, 2016 11:00 - CONCLUSION: Normal examination. Federico Jenkins MD Abdomen/Pelvis CT 11/05/16 1750 Signed Impressions: Service Date/Time: Saturday, November 05, 2016 18:55 - CONCLUSION: 1. Markedly abnormal CT scan of the abdomen. Lack of intravenous contrast makes delineation of further abnormalities difficult. 2. I cannot exclude neoplasm, acute cholecystitis. Doyle Hurt MD FACR Physical Exam HEENT: Normocephalic; atraumatic; + jaundice. Throat is clear. NECK: Neck is supple, no JVD, no lymphadenopathy. CHEST: CTA CARDIAC: RRR ABDOMEN: Soft, nondistended, nontender; hepatosplenomegaly; bowel sounds are present in all four quadrants. EXTREMITIES: No clubbing, cyanosis, or edema. SKIN: Normal; no rash; + jaundice. TORTS LAW PROFESSOR: No focal deficits; alert and oriented times three. (Stacey Church) Assessment and Plan Plan ASSESSMENT: - Profound iron deficiency anemia. AFP 3.2, CEA 7.8, Ca19-9 36.0. S/p 2 units PRBC. HH 9.1/29.0. S/P EGD/Colonoscopy (11/08/16)----> gastritis, gastropathy, esophagitis, internal hemorrhoids, diverticulosis, proctitis. Pathology with gastric body type mucosal biopsy with mild chronic non-specific gastritis negative for intestinal metaplasia and dysplasia, alesha stain negative for helicobacter. - Thrombocytopenia. S/P 2 Plt. Plt count 56 - Acute alcoholic hepatitis with elevated LFTs. T. Bili 6.6, AST 55, ALT 29, Alk Phosph 91. Abdomen Ultrasound (11/08/16)----> No evidence of significant ascites - Abnormal imaging of the abdomen with noted lymphadenopathy, Tumor markers are nonspecifically elevated. AFP 3.2, CEA 7.8, Ca19-9 36.0. EGD/Colonoscopy in am. Abdomen/Pelvis CT (11/05/16)----> 1. Markedly abnormal CT scan of the abdomen. Lack of intravenous contrast makes delineation of further abnormalities difficult. 2. I cannot exclude neoplasm, acute cholecystitis. Will get contrasted study - Diabetes per primary PLAN - BECK - PPI - Monitor LFTs - CT Scan abdomen and pelvis with iv/po contrast - Supportive care - Further recommendations to follow based on results of above - Pt seen and examined by Dr. Turcios and myself and this note is written on his behalf (Stacey Church) Physician Comments Seen and examined with Ms. Ranjit COLINDRES, repeat CT with contrast ordered. ( Josseline Turcios MD) Stacey Church Nov 09, 2016 15:22 Josseline Turcios MD Nov 09, 2016 16:40
[2016-11-09] MEDS ORDERED: DIATRIZOATE MEGLUM/DIATRIZOATE SOD 9 ML CUP PO ONE (16:15)
[2016-11-09] MEDS ORDERED: IOHEXOL 350 MG/ML 10 ML VIAL (for RAD DIAG) IV ONE (18:40)
--- NOTE | 2016-11-09 19:01 | EC ---
Study Study Date:11/09/2016 STUDY CONCLUSIONS SUMMARY - Left ventricle: The cavity size was normal. Wall thickness was normal. Systolic function was normal. The estimated ejection fraction was in the range of 55% to 60%. Wall motion was normal; there were no regional wall motion abnormalities. - Tricuspid valve: Mild regurgitation. - Pulmonary arteries: Systolic pressure was mildly increased. PA peak pressure: 46mm Hg (S). If LV function is below 40, please consider prescribing an ACEI or ARB or document rationale for non-use. PROCEDURE DATA STUDY STATUS: Elective. Procedure: Transthoracic echocardiography. Image quality was good. Scanning was performed from the parasternal, apical, and subcostal acoustic windows. Study completion: The patient tolerated the procedure well. Transthoracic echocardiography. M-mode, complete 2D, complete spectral Doppler, and color Doppler. Patient status: Inpatient. CARDIAC ANATOMY LEFT VENTRICLE: The cavity size was normal. Wall thickness was normal. Systolic function was normal. The estimated ejection fraction was in the range of 55% to 60%. Wall motion was normal; there were no regional wall motion abnormalities. AORTIC VALVE: Trileaflet; mildly thickened leaflets. Doppler: Transvalvular velocity was within the normal range. There was no stenosis. No regurgitation. AORTA: Aortic root: The aortic root was normal in size. MITRAL VALVE: Structurally normal valve. Doppler: Transvalvular velocity was within the normal range. There was no evidence for stenosis. Trace regurgitation. Mean gradient: 2mm Hg (D). Peak gradient: 5mm Hg (D). LEFT ATRIUM: The atrium was at the upper limits of normal in size. RIGHT VENTRICLE: The cavity size was normal. Wall thickness was normal. PULMONIC VALVE: Doppler: Transvalvular velocity was within the normal range. There was no evidence for stenosis. No regurgitation. TRICUSPID VALVE: Structurally normal valve. Doppler: Transvalvular velocity was within the normal range. Mild regurgitation. PULMONARY ARTERY: The main pulmonary artery was normal-sized. Systolic pressure was mildly increased. RIGHT ATRIUM: The atrium was normal in size. PERICARDIUM: There was no pericardial effusion. SYSTEMIC VEINS: Inferior vena cava: The vessel was normal in size. BASIC MEASUREMENTS ADULT Normal Left ventricle LV internal dimension, ED, chordal level, *53.3 mm 43-52 PLAX LV internal dimension, ES, chordal level, *40.8 mm 23-38 PLAX Fractional shortening, chordal level, PLAX *23 % >29 LV posterior wall thickness, ED 7.48 mm IVS/LVPW ratio, ED *1.62 <1.3 Ventricular septum Septal thickness, ED 12.1 mm Aortic valve Leaflet separation 26 mm 15-26 Left atrium Anterior-posterior dimension 40 mm Right ventricle RV internal dimension, ED, PLAX 27.2 mm 19-38 BASIC MEASUREMENTS ADULT Normal Aortic valve Leaflet separation 26 mm 15-26 Aorta Root diameter, ED 35 mm 20-37 DOPPLER MEASUREMENTS ADULT Normal Main pulmonary artery Pressure, S *46 mm Hg =30 Aortic valve VTI, S 35.3 cm Mitral valve Peak E-wave velocity 108 cm/s Peak A-wave velocity 63.2 cm/s Mean velocity, D 61.6 cm/s Mean gradient, D 2 mm Hg Peak gradient, D 5 mm Hg Peak E/A ratio 1.7 Tricuspid valve Regurgitant peak velocity 302 cm/s Peak RV-RA gradient, S 36 mm Hg Maximal regurgitant velocity 302 cm/s Systemic veins Estimated CVP 10 mm Hg Right ventricle RV pressure, S *46 mm Hg <30 LEGEND: Mean values are shown as u=mean value. Asterisk (*) velázquez values outside specified normal range. Prepared and signed by Gio Jhaveri [id number]
--- NOTE | 2016-11-09 19:02 | RADRPT ---
EXAM DATE/TIME: 11/09/2016 18:33 [facility] COMPARISON: CT ABDOMEN & PELVIS W/O CONTRAST, November 05, 2016, 18:55. INDICATIONS : Lymphadenopathy in abdominal CT. IV CONTRAST: 95 cc Omnipaque 350 (iohexol) IV ORAL CONTRAST: Prescribed oral contrast ingested. RADIATION DOSE: 15.92 CTDIvol (mGy) MEDICAL HISTORY : Gastroesophageal reflux disease. Cirrhosis. Hepatitis C.Diabtetes. SURGICAL HISTORY : None. ENCOUNTER: Initial ACUITY: 1 day PAIN SCALE: 0/10 LOCATION: abdomen/pelvis TECHNIQUE: Volumetric scanning of the abdomen and pelvis was performed. Using automated exposure control and ad justment of the mA and/or kV according to patient size, radiation dose was kept as low as reasonably achievable to obtain optimal diagnostic quality images. FINDINGS: LOWER LUNGS: Small left pleural effusion and left basilar density. LIVER: Cirrhotic liver without lesion. There is no dilation of the biliary tree. Minimal ascites. There is cholelithiasis. There are varices in the left upper quadrant. SPLEEN: Enlarged without lesion. PANCREAS: Within normal limits. KIDNEYS: Normal in size and shape. There is no mass, stone or hydronephrosis. ADRENAL GLANDS: Within normal limits. VASCULAR: There is no aortic aneurysm. BOWEL/MESENTERY: Diverticulosis of the colon without diverticulitis. There is no free intraperitoneal air or fluid. ABDOMINAL WALL: Within normal limits. RETROPERITONEUM: There is no lymphadenopathy. BLADDER: No wall thickening or mass. REPRODUCTIVE: Within normal limits. INGUINAL: There is no lymphadenopathy or hernia. MUSCULOSKELETAL: Within normal limits for patient age. CONCLUSION: 1. Cirrhotic liver with minimal ascites. 2. Splenomegaly with portal hypertension and upper abdominal varices. 3. Cholelithiasis. 4. Diverticulosis without diverticulitis. 5. Small left pleural effusion and left basilar density likely atelectasis. 6. No abdominal lymphadenopathy. Iker Ngo MD on November 09, 2016 at 18:57 Board Certified Radiologist. This report was verified electronically.
[2016-11-09] MEDS ORDERED: ACETAMINOPHEN 325 MG TAB PO PRN (23:00)
[2016-11-09] MEDS: LACTATED RINGER'S 1000 ML IV SCH (23:15)
--- NOTE | 2016-11-10 00:12 | RADRPT ---
EXAM DATE/TIME: 11/09/2016 23:13 [facility] COMPARISON: No previous studies available for comparison. INDICATIONS : Right lower extremity pain. MEDICAL HISTORY : Cirrhosis. Hepatitis C. Ulcer. GERD. Diabetes. Anemia. Thrombocytopenia. Depression. Anxiety. SURGICAL HISTORY : Left knee ACL/MCL repair. Blood transfusions. ENCOUNTER: Subsequent ACUITY: 3 days PAIN SCORE: 6/10 LOCATION: Right leg. TECHNIQUE: Venous ultrasound of the leg was performed from the inguinal ligament to the proximal calf. Real-edwin e, color Doppler and spectral tracing, compression and augmentation techniques were used. FINDINGS: There is normal compressibility of the deep venous system from the inguinal region to the proximal ca lf. No echogenic clot is seen in the lumen of the common femoral, femoral, popliteal, and posterior tibial veins. There is a normal response of the venous system to proximal and distal augmentation an d respiration. Shotty inguinal lymph nodes are noted CONCLUSION: No evidence of right lower extremity DVT. Michael Lindsey MD on November 10, 2016 at 0:11 Board Certified Radiologist. This report was verified electronically.
[2016-11-10 00:14] VITALS: BP 143/78; PULSE 84; RESP 16; TEMP 98.1; O2SAT 95
[2016-11-10] MEDS: INSULIN ASPART SUPPLEMENTAL SCALE SQ SCH ×2 (06:01→11:00)
[2016-11-10 08:00] VITALS: BP 142/78; PULSE 80; PULSE 81; RESP 18; TEMP 98.1; O2SAT 96
[2016-11-10] MEDS ORDERED: PROPRANOLOL HCL 10 MG TAB PO SCH (09:00)
[2016-11-10] MEDS ORDERED: FUROSEMIDE 40 MG TAB PO SCH (09:00)
[2016-11-10] MEDS: SODIUM CHLORIDE 0.9% FLUSH 5 ML FLUSH FLUSH SCH (09:00)
[2016-11-10] MEDS ORDERED: PANTOPRAZOLE SOD 40 MG DELAYED RELEASE TAB PO SCH (09:00)
[2016-11-10] MEDS ORDERED: SPIRONOLACTONE 25 MG TAB PO SCH (09:00)
[2016-11-10] MEDS: SODIUM CHLORIDE 0.9% IV SCH (09:45)
[2016-11-10] MEDS: THIAMINE IV SCH (09:45)
--- NOTE | 2016-11-10 10:32 | HHI.PR ---
Subjective History of Present Illness feels better No N/V good appetite No abd pain No CP_ or SOB No cough or sputum legs are still swollen ambulating in the room offers no other c/o Vitals/Results Intake & Output 11/09/16 11/09/16 11/10/16 15:00 23:00 07:00 Intake Total 1200 ml Output Total 2 ml Balance 1198 ml Intake Oral 1200 ml Output Urine Total 2 ml # Voids 3 # Bowel Movements 1 Vital Signs Vital Signs Date Time Temp Pulse Resp B/P Pulse Ox O2 Delivery O2 Flow Rate FiO2 11/10/16 08:00 98.1 81 18 142/78 96 11/10/16 00:14 98.1 84 16 143/78 95 11/09/16 22:00 84 11/09/16 21:30 98.6 88 18 153/81 95 11/09/16 21:30 98.6 88 18 153/81 95 11/09/16 20:00 98.2 81 17 159/90 96 11/09/16 17:48 106 11/09/16 16:00 98.6 85 18 142/81 95 11/09/16 12:00 98.6 90 18 144/79 93 CBC/BMP: 11/09/16 0614 11/08/16 0447 Physical Exam General General Appearance: Well Developed, Well Nourished, No Acute Distress, Comfortable, Obese Eyes Eye Exam: Pupils Equal, Pupils Reactive, Sclera White, Jaundice Ears & Nose Ears & Nose Exam: Nasal Mucosa [place] Throat Throat Exam: Oral Mucosa [place] & Moist Neck Neck Exam: Neck Supple, Trachea Midline Pulmonary Resp Exam: Rhonchi, Decreased Bases Cardiology CV Exam: Regular, Normal Sinus Rhythm Gastrointestinal/Abdomen GI Exam: Soft, Non-Tender, Bowel Sounds Present, Non-Distended Musculoskeletal MS Exam: Normal Gait Integumentary Skin Exam: Warm, Dry Extremeties Extremities Exam: Pedal Pulses Palpable, Moderate Edema, Pitting Edema Neurologic Neuro Exam: Alert, Awake, Oriented, Speech Clear, Moving All Extremities, No Focal Deficits Psychiatric Psych Exam: Appropriate Responses VTE Prophylaxis VTE Prophylaxis Device: SCDs PUD Prophylasis PUD Prophylaxis: Protonix Assessment/Plan Problem List: (1) Severe anemia (2) Pancytopenia (3) Iron deficiency anemia (4) ETOH abuse (5) Diabetes 1.5, managed as type 2 (6) Peripheral edema (7) Depression (8) Elevated liver enzymes Assessment/Plan s/p Severe anemia, Hypochromic Microcytic anemia/Iron def anemia s/p GI bleed -appreciate GI input -S/P transfusion of PRBC 2 units -H/H stable -IV PPI -S/P EGD/Colonoscopy-portal HTN, gastropathy, gastritis, esophagitis, int. hemorrhoid, proctitis - change PPI to po qd - Po Iron therapy -NO paracentesis / No sig ascites to tap ETOH Related Cirrhosis Portal HTN Splenomegaly Portal gastropathy jaundice Mild ascites pedal edema Thrombocytopenia, pancytopenia, -S/P tx of platelets 2 units -CBC stable -start Inderal 10 mg bid -start lasix 40 mg qd -start Aldactone 25 mg bid Depression -evaluated by psychiatry, no need for Torres Act. Likely mood disorder sec. ETOH abuse. Pt. declined medications at this time. will go to AA post D/C ETOH abuse with elevated LFTs. Has elevated CEA and CA 19-9 -monitor for withdrawal symptoms -[facility] protocol -ETOH counseling done -Follow LFTs stable -GI input appreciated DM II -Monitor sugar with sliding scale insulin coverage and low-dose Novolog coverage SCDs for DVT prophylaxis PPI for GI prophylaxis Echo Noted Nl LVF , EF 60% Overall improved, medically stable for d/c d/c home today see MRS see Orders f/u pcp f/u GI Problem Qualifiers (1) Iron deficiency anemia: Qualified Code: D50.9 - Iron deficiency anemia, unspecified iron deficiency anemia type (2) Depression: Qualified Code: F32.9 - Depression, unspecified depression type Richy Lopez MD Nov 10, 2016 10:31
[2016-11-10] MEDS ORDERED: FURO1TAB60 PO (11:22)
[2016-11-10] MEDS ORDERED: PROP10TA6 PO (11:22)
[2016-11-10] MEDS ORDERED: PANT40TA3 PO (11:22)
[2016-11-10] MEDS ORDERED: Spironolactone PO (11:22)
[2016-11-10] MEDS ORDERED: FERR325T PO (11:25)
--- NOTE | 2016-11-10 18:42 | HHI.DS ---
Discharge Summary Admission Date Nov 05, 2016 at 20:49 Admitting Diagnosis symptomatic anemia/severe thrombocytopenia Procedures EGD Paracentesis Brief History The patient was a very pleasant 56-year male with significant past medical history of diabetes and peptic ulcer disease. As per patient he had been drinking since his teenager time and in-between he sometimes stopped drinking. First time he stopped drinking was 1991 for a couple of years and then in between for a couple of months to a year or two. But for the past couple of years he has been drinking continuously. He usually drinks beer. He occasionally drinks hard liquor. He was drinking 8 to 10 beers a day, sometimes tall beer cans and sometimes small beer cans. This was his usual. For the past couple of months he has had swelling of both feet with pain at the end of day. He went to his PCP office, then came to ER. He was evaluated by the ER physician and found out that the patient had anemia, hemoglobin of 5.8, for which it was recommended for admission. ER physician did rectal examination that showed brown stool and negative hemoccult. Blood transfusion 2 units was given increasing the hemoglobin to 6.8 and hematocrit from 19.3 to 21.4. The patient had no abdominal pain. He denied any chest pain, diaphoresis or palpitations. He had no diarrhea and normal stools morning before admission. He has no genitourinary symptoms. He had symptoms of low energy. He had no fever, no chills, no headache or dizziness. The patient denied any cough. CBC/BMP: 11/09/16 0614 11/08/16 0447 Significant Findings Laboratory Tests Test 11/08/16 11/09/16 04:47 06:14 Red Blood Count 3.70 MIL/MM3 3.81 MIL/MM3 (4.50-5.90) (4.50-5.90) Hemoglobin 8.9 GM/DL 9.1 GM/DL (13.0-17.0) (13.0-17.0) Hematocrit 28.0 % 29.0 % (39.0-51.0) (39.0-51.0) Mean Corpuscular Volume 75.5 FL 76.0 FL (80.0-100.0) (80.0-100.0) Mean Corpuscular Hemoglobin 24.1 PG 24.0 PG (27.0-34.0) (27.0-34.0) Mean Corpuscular Hemoglobin 31.9 % 31.6 % Concent (32.0-36.0) (32.0-36.0) Red Cell Distribution Width 19.0 % 19.6 % (11.6-17.2) (11.6-17.2) Platelet Count 55 TH/MM3 56 TH/MM3 (150-450) (150-450) Monocytes (%) (Auto) 11.8 % (0.0-8.0) Platelet Estimate LOW (NORMAL) Prothrombin Time 17.1 SEC (9.8-11.6) Calcium Level 7.8 MG/DL (8.5-10.1) Total Bilirubin 7.6 MG/DL 6.6 MG/DL (0.2-1.0) (0.2-1.0) Aspartate Amino Transf 64 U/L (15-37) 55 U/L (15-37) (AST/SGOT) Total Protein 6.2 GM/DL (6.4-8.2) Albumin 2.2 GM/DL 2.2 GM/DL (3.4-5.0) (3.4-5.0) Direct Bilirubin 4.6 MG/DL (0.0-0.2) Indirect Bilirubin 2.0 MG/DL (0.0-0.8) Imaging Last Impressions Lower Extremity Ultrasound 11/09/16 0000 Signed Impressions: Service Date/Time: Wednesday, November 09, 2016 23:13 - CONCLUSION: No evidence of right lower extremity DVT. Michael Lindsey MD Abdomen/Pelvis CT 11/09/16 0000 Signed Impressions: Service Date/Time: Wednesday, November 09, 2016 18:33 - CONCLUSION: 1. Cirrhotic liver with minimal ascites. 2. Splenomegaly with portal hypertension and upper abdominal varices. 3. Cholelithiasis. 4. Diverticulosis without diverticulitis. 5. Small left pleural effusion and left basilar density likely atelectasis. 6. No abdominal lymphadenopathy. Iker Ngo MD Abdomen Ultrasound 11/08/16 0000 Signed Impressions: Service Date/Time: Tuesday, November 08, 2016 16:08 - CONCLUSION: No evidence of significant ascites. Walker Gore MD PE at Discharge General General Appearance: Well Developed, No Acute Distress, Obese Eyes Eye Exam: Pupils Equal, Pupils Reactive, Jaundice Ears & Nose Ears & Nose Exam: Nasal Mucosa [place] Throat Throat Exam: Oral Mucosa [place] & Moist Neck Neck Exam: Neck Supple, Trachea Midline Pulmonary Resp Exam: Rhonchi, Decreased Bases Cardiology CV Exam: Regular, Good Perfusion Gastrointestinal/Abdomen GI Exam: Soft, Non-Tender, Bowel Sounds Present, Non-Distended Musculoskeletal MS Exam: Joints Intact Integumentary Skin Exam: Warm, Dry Extremeties Extremities Exam: Pedal Pulses Palpable, Trace Edema Neurologic Neuro Exam: Alert, Awake, Oriented, Speech Clear, Moving All Extremities, No Focal Deficits Psychiatric Psych Exam: Appropriate Responses Hospital Course Severe anemia on admission,-S/P transfusion of PRBC 2 units, LENARD, GI bleed Ruled out. GI consult obtained with assistance to treatment regime Labs monitored for any abnormals as well as any acute bleeding. -HH stable monitored and stable on discharge date. PPI IV used during hospital stay EGD/Colonoscopy-portal showed HTN, gastropathy, gastritis, esophagitis, int. hemorrhoid, proctitis Other procedures include paracentesis. Dr Turcios , US abd didn't reveal sig ascites , we decided interval f/u imaging in 3 months , if LN persist/worsen than possible bx CT guided or Laparoscopic Thrombocytopenia, pancytopenia, platelets 44 on admit, most current 60 noted. -S/P tx of platelets 2 units Depression was-evaluated by psychiatry, no need for Torres Act. Likely mood disorder sec. ETOH abuse. Pt. declining medications at this time. States he will go to AA when discharged. ETOH abuse with elevated LFTs monitored. Other labs monitored were elevated CEA and CA 19- withdrawal symptoms monitored without DTs -[facility] protocol follwed -ETOH counseling done DM II sugar with sliding scale insulin coverage and low-dose Novolog coverage was monitored and treated as regime. SCDs for DVT prophylaxis done PPI for GI prophylaxis done Echo done Overall improved and stable for discharge today. Pt Condition on Discharge: Stable Discharge Disposition: Discharge Home Discharge Instructions DIET: Follow Instructions for: Heart Healthy Diet, Diabetic Diet Additional Diet Instructions: none Fluid Restrictions: 1500cc/day Activities you can perform: Regular-No Restrictions Other Activity Instructions: No Alcohol use New Medications: Ferrous Sulfate (Ferrous Sulfate) 325 Mg Tab 325 MG PO BID Nutritional Supplement #60 Ref 0 TAB Furosemide (Lasix) 40 Mg Tab 40 MG PO DAILY edema #30 TAB Pantoprazole (Pantoprazole) 40 Mg Tab 40 MG PO DAILY GI Bleed #30 TAB Propranolol (Propranolol) 10 Mg Tab 10 MG PO Q12HR Portal Hypertension #60 TAB ([Spironolactone]) 25 MG TAB 25 MG PO BID@,18 #60 TAB Continued Medications: Sitagliptin (Januvia) 100 Mg Tab 100 MG PO DAILY Blood Sugar Management #30 Ref 0 TAB Discontinued Medications: Omeprazole (Prilosec) 20 Mg Cap Unknown Dose PO DAILY #30 Ref 0 CAP Pantoprazole (Pantoprazole) 40 Mg Tab 40 MG PO DAILY Reflux #30 Ref 0 TAB Lona Lai Nov 10, 2016 18:42
== END 2016-11-10 14:04 | disposition home or self-care (01) | DRG 809 ==
LOC: NEPC 15:58 → NEDA 20:49 → N06A 23:35 → N04B 11-09 21:40
PROVIDERS: ADMIT Specialist; ATTEND Specialist
PROC: 30233R1 Transfusion of Nonautologous Platelets into Peripheral Vein, Percutaneous Approach (ICD-10-PCS; principal; 2016-11-05)
PROC: 30233N1 Transfusion of Nonautologous Red Blood Cells into Peripheral Vein, Percutaneous Approach (ICD-10-PCS; 2016-11-05)
PROC: 0DJD8ZZ Inspection of Lower Intestinal Tract, Via Natural or Artificial Opening Endoscopic (ICD-10-PCS; 2016-11-08)
PROC: 0DB68ZX Excision of Stomach, Via Natural or Artificial Opening Endoscopic, Diagnostic (ICD-10-PCS; 2016-11-08)
DX: D61.818 Other pancytopenia (principal); E44.0 Moderate protein-calorie malnutrition; K76.6 Portal hypertension; K70.31 Alcoholic cirrhosis of liver with ascites; E83.51 Hypocalcemia; F10.24 Alcohol dependence with alcohol-induced mood disorder; K70.11 Alcoholic hepatitis with ascites; E11.9 Type 2 diabetes mellitus without complications; E87.6 Hypokalemia; F32.9 Major depressive disorder, single episode, unspecified; K64.4 Residual hemorrhoidal skin tags; K57.30 Diverticulosis of large intestine without perforation or abscess without bleeding; K64.8 Other hemorrhoids; K20.9 Esophagitis, unspecified; K31.89 Other diseases of stomach and duodenum; K29.50 Unspecified chronic gastritis without bleeding; R16.1 Splenomegaly, not elsewhere classified; R59.1 Generalized enlarged lymph nodes; R29.6 Repeated falls; Z68.31 Body mass index [BMI] 31.0-31.9, adult; Z72.0 Tobacco use; Z79.84 Long term (current) use of oral hypoglycemic drugs; Z81.1 Family history of alcohol abuse and dependence; Z91.81 History of falling
CPT/HCPCS: 36430; 74176; 74177; 76705; 80048; 80053; 80076; 82105; 82248; 82378; 82948; 83540; 83550; 83880; 84155; 84484; 85025; 85027; 85610; 86301; 86850; 86900; 86901; 86920; 86965; 88305; 88312; 93005; 93306; 93970; 93971; 96372; C9113; J1940; J2060; J3411; J7050; J7120; P9016; P9035; Q9963; Q9967

== ENCOUNTER 2017-01-24 18:35 | Emergency (ER) | payer OTHER ==
[~2017-01-24] VITALS: Ht 170.2 cm; Wt 86.5 kg
[~2017-01-24 18:35] MED LIST: FERR325T PO; FURO1TAB60 PO; PANT40TA3 PO; PROP10TA6 PO; SITA1TAB2 PO; Spironolactone PO
[2017-01-24 18:52] VITALS: BP 145/70; PULSE 83; RESP 19; TEMP 98.6
[2017-01-24 19:48] LABS: AUTOMATED NEUTROPHIL # 2.7 TH/MM3 (1.8-7.7); BASOPHIL # 0.1 TH/MM3 (0-0.2); BASOPHIL % 1.2 % (0.0-2.0); EOSINOPHIL # 0.1 TH/MM3 (0-0.4); EOSINOPHIL % 2.6 % (0.0-4.0); HEMATOCRIT 28.9 % (39.0-51.0); LYMPH % 21.8 % (9.0-44.0); MEAN CELL VOLUME 78.9 FL (80.0-100.0); MEAN CORPUSCULAR HEMOGLOBIN 24.8 PG (27.0-34.0); MEAN CORPUSCULAR HGB CONC 31.5 % (32.0-36.0); MONO % 14.4 % (0.0-8.0); PLATELET COUNT 62 TH/MM3 (150-450); RED BLOOD COUNT 3.66 MIL/MM3 (4.50-5.90); RED CELL DISTRIBUTION WIDTH 23.1 % (11.6-17.2); WHITE BLOOD COUNT 4.5 TH/MM3 (4.0-11.0)
[2017-01-24 19:57] LABS: HEMO FLAGS AUTO DIFF
[2017-01-24 20:02] LABS: BICARBONATE 28.1 MEQ/L (21.0-32.0); POTASSIUM 3.8 MEQ/L (3.5-5.1)
[2017-01-24 20:05] LABS: INDIRECT BILIRUBIN 1.8 MG/DL (0.0-0.8); TOTAL BILIRUBIN ADULT 5.7 MG/DL (0.2-1.0)
[2017-01-24 20:06] LABS: APTT (PATIENT) 30.1 SEC (24.3-30.1); INTERNATIONAL NORMALIZED RATIO 1.4 RATIO; PROTHROMBIN TIME - PATIENT 15.5 SEC (9.8-11.6)
--- NOTE | 2017-01-24 20:09 | PD ---
HPI Chief Complaint: Abnormal Results Time Seen by Provider: 19:07 Travel History International Travel<30 days: No Contact w/Intl Traveler<30days: No Traveled to known affect area: No History of Present Illness HPI Patient is a 56 year old male sent from [facility] for low platelets. He says he fell two days ago while he was drunk. His only complaint is "soreness" to his head. He denies abdominal pain, nausea or vomiting. He denies any blurred vision. He says he has liver disease from alcoholism. He went to [facility] for detox from alcohol. He denies any withdrawal symptoms. PFSH Past Medical History Arthritis: No Asthma: No Autoimmune Disease: No Anxiety: Yes Depression: Yes Heart Rhythm Problems: No Cancer: No Cardiovascular Problems: No High Cholesterol: No Chemotherapy: No Congestive Heart Failure: No COPD: No Cerebrovascular Accident: No Diabetes: Yes Patient Takes Glucophage: No Diminished Hearing: No Endocrine: Yes Gastrointestinal Disorders: Yes GERD: Yes Genitourinary: No Hepatitis: Yes (HEP C) Hiatal Hernia: No Immune Disorder: No Kidney Stones: No Musculoskeletal: No Neurologic: No Psychiatric: Yes Reproductive: No Respiratory: No Migraines: No Radiation Therapy: No Renal Failure: No Seizures: No Sickle Cell Disease: No Sleep Apnea: No Thyroid Disease: No Ulcer: Yes Past Surgical History Abdominal Surgery: No AICD: No Arteriovenous Shunt: No Cardiac Surgery: No Ear Surgery: No Endocrine Surgery: No Eye Surgery: No Genitourinary Surgery: No Gynecologic Surgery: No Insulin Pump: No Joint Replacement: No Neurologic Surgery: No Oral Surgery: No Pacemaker: No Thoracic Surgery: No Other Surgery: Yes (LEFT CHEEK FX) Social History Alcohol Use: Yes (DAILY- BEER ) Tobacco Use: Yes Substance Use: No Allergies-Medications (Allergen,Severity, Reaction): Coded Allergies: No Known Allergies (Unverified , 11/05/16) Reported Meds & Prescriptions Reported Meds & Active Scripts Active Ferrous Sulfate 325 Mg Tab 325 Mg PO BID Propranolol (Propranolol HCl) 10 Mg Tab 10 Mg PO Q12HR [Spironolactone] 25 MG Tab 25 Mg PO BID@18 Pantoprazole (Pantoprazole Sodium) 40 Mg Tab 40 Mg PO DAILY Lasix (Furosemide) 40 Mg Tab 40 Mg PO DAILY Reported Januvia (Sitagliptin Phosphate) 100 Mg Tab 100 Mg PO DAILY Review of Systems Except as stated in HPI: all other systems reviewed are Neg Eyes: No: Blurred Vision HENT: Positive: Headaches, No: Lightheadedness Cardiovascular: No: Chest Pain or Discomfort Respiratory: No: Shortness of Breath Gastrointestinal: No: Nausea, Vomiting Musculoskeletal: No: Myalgias Skin: Positive Other (abrasions) Neurologic: No: Weakness, Dizziness Physical Exam Narrative GENERAL: Awake and alert, in no acute distress. No tremulousness. SKIN: Focused skin assessment warm/dry. Scattered abrasion to the forehead above the left eye. Abrasion to the right palm. HEAD: Atraumatic. Normocephalic. EYES: Pupils equal and round. No scleral icterus. Extraocular movements intact. ENT: Mucous membranes pink and moist. No tongue fasciculations. NECK: Trachea midline. No JVD. CARDIOVASCULAR: Regular rate and rhythm. No murmur appreciated. RESPIRATORY: No accessory muscle use. Clear to auscultation. Breath sounds equal bilaterally. GASTROINTESTINAL: Abdomen soft, non-tender, nondistended. MUSCULOSKELETAL: No obvious deformities. No clubbing. No cyanosis. No edema. NEUROLOGICAL: Awake and alert. No obvious cranial nerve deficits. Motor grossly within normal limits. Normal speech. PSYCHIATRIC: Appropriate mood and affect; insight and judgment normal. Data Data Last Documented VS Vital Signs Date Time Temp Pulse Resp B/P Pulse Ox O2 Delivery O2 Flow Rate FiO2 01/24/17 22:50 78 16 156/81 96 01/24/17 18:54 Room Air 01/24/17 18:52 98.6 Orders Complete Blood Count With Diff (01/24/17 19:21) Basic Metabolic Panel (Bmp) (01/24/17 19:21) Act Partial Throm Time (Ptt) (01/24/17 19:21) Prothrombin Time / Inr (Pt) (01/24/17 19:21) Hepatic Functional Panel (01/24/17 19:21) Ct Brain W/O Iv Contrast(Rout) (01/24/17 ) Psych Screen (01/24/17 19:29) Alcohol (Ethanol) (01/24/17 19:29) Alcohol Withdrawal Asmt-Ciwa ONCE (01/24/17 21:46) Flumazenil Inj (Romazicon Inj) (01/24/17 22:00) Lorazepam (Ativan) (01/24/17 22:00) Lorazepam Inj (Ativan Inj) (01/24/17 22:00) Lorazepam (Ativan) (01/24/17 22:00) Lorazepam Inj (Ativan Inj) (01/24/17 22:00) Lorazepam Inj (Ativan Inj) (01/24/17 22:00) Lorazepam Inj (Ativan Inj) (01/24/17 22:00) Labs Laboratory Tests Test 01/24/17 19:25 White Blood Count 4.5 TH/MM3 Red Blood Count 3.66 MIL/MM3 Hemoglobin 9.1 GM/DL Hematocrit 28.9 % Mean Corpuscular Volume 78.9 FL Mean Corpuscular Hemoglobin 24.8 PG Mean Corpuscular Hemoglobin 31.5 % Concent Red Cell Distribution Width 23.1 % Platelet Count 62 TH/MM3 Mean Platelet Volume 8.4 FL Neutrophils (%) (Auto) 60.0 % Lymphocytes (%) (Auto) 21.8 % Monocytes (%) (Auto) 14.4 % Eosinophils (%) (Auto) 2.6 % Basophils (%) (Auto) 1.2 % Neutrophils # (Auto) 2.7 TH/MM3 Lymphocytes # (Auto) 1.0 TH/MM3 Monocytes # (Auto) 0.6 TH/MM3 Eosinophils # (Auto) 0.1 TH/MM3 Basophils # (Auto) 0.1 TH/MM3 CBC Comment AUTO DIFF Differential Comment AUTO DIFF CONFIRMED Platelet Estimate LOW Platelet Morphology Comment NORMAL Target Cells 1+ Prothrombin Time 15.5 SEC Prothromb Time International 1.4 RATIO Ratio Activated Partial 30.1 SEC Thromboplast Time Sodium Level 138 MEQ/L Potassium Level 3.8 MEQ/L Chloride Level 102 MEQ/L Carbon Dioxide Level 28.1 MEQ/L Anion Gap 8 MEQ/L Blood Urea Nitrogen 4 MG/DL Creatinine 0.85 MG/DL Estimat Glomerular Filtration 93 ML/MIN Rate Random Glucose 147 MG/DL Calcium Level 8.0 MG/DL Total Bilirubin 5.7 MG/DL Direct Bilirubin 3.9 MG/DL Indirect Bilirubin 1.8 MG/DL Aspartate Amino Transf 67 U/L (AST/SGOT) Alanine Aminotransferase 24 U/L (ALT/SGPT) Alkaline Phosphatase 181 U/L Total Protein 7.6 GM/DL Albumin 2.5 GM/DL Ethyl Alcohol Level 58 MG/DL MDM Medical Decision Making Medical Screen Exam Complete: Yes Emergency Medical Condition: Yes Differential Diagnosis Liver failure versus thrombocytopenia versus coagulopathy Narrative Course Patient is a 56-year-old male who comes in from [facility] for a low platelet count. He complains of "soreness" to his head. Exam shows no abnormalities other than abrasion to his forehead. IV established, labs sent. Platelet count 62. Liver enzymes and bilirubin are elevated, this is improved from his previous labs. CT head performed shows no acute abnormalities. Patient has no active signs of bleeding. Patient medically cleared for psychiatric evaluation. Diagnosis Primary Impression: Thrombocytopenia Additional Impression: Liver dysfunction Condition: Stable Ania Ortiz MD Jan 24, 2017 20:09
--- NOTE | 2017-01-24 20:18 | RADRPT ---
EXAM DATE/TIME: 01/24/2017 19:39 [facility] COMPARISON: No previous studies available for comparison. INDICATIONS : Altered mental status; ETOH. RADIATION DOSE: 43.77 CTDIvol (mGy) MEDICAL HISTORY : None SURGICAL HISTORY : None. ENCOUNTER: Initial ACUITY: 1 day PAIN SCALE: 0/10 LOCATION: cranial TECHNIQUE: Multiple contiguous axial images were obtained of the head. Using automated exposure control and adj ustment of the mA and/or kV according to patient size, radiation dose was kept as low as reasonably a chievable to obtain optimal diagnostic quality images. FINDINGS: CEREBRUM: The ventricles, sulci, and basal cisterns are prominent, characteristic of moderate central and corti nito atrophy.. No evidence of midline shift, mass lesion, hemorrhage or acute infarction. No extra-a xial fluid collections are seen. POSTERIOR FOSSA: The cerebellum and brainstem are intact. The 4th ventricle is midline. The cerebellopontine angle i s unremarkable. EXTRACRANIAL: The visualized portion of the orbits is intact. SKULL: There is focal mild scalp swelling in the left frontal region measuring up to 7 mm in thickness. No radiopaque foreign bodies. The calvaria is intact. No evidence of skull fracture. CONCLUSION: 1. Moderate severity atrophy. No acute findings in the brain. 2. Focal left parasagittal frontal scalp swelling. No skull fracture seen. Pepe Edgar MD on January 24, 2017 at 20:15 Board Certified Radiologist. This report was verified electronically.
[2017-01-24 20:31] LABS: TARGET CELLS 1+ (NORMAL)
[2017-01-24 20:32] LABS: PLATELET ESTIMATE SMEAR LOW (NORMAL); PLATELET MORPHOLOGY NORMAL (NORMAL); SCAN/DIFF AUTO DIFF CONFIRMED
[2017-01-24] MEDS ORDERED: FLUMAZENIL 0.5 MG/5 ML VIAL IV PUSH PRN (22:00)
[2017-01-24] MEDS ORDERED: LORazepam 1 MG TAB PO PRN (22:00)
[2017-01-24] MEDS ORDERED: LORazepam 2 MG TAB PO PRN (22:00)
[2017-01-24] MEDS ORDERED: LORazepam 2 MG/ML VIAL IV PUSH PRN ×4 (22:00)
[2017-01-24 22:50] VITALS: BP 156/81; PULSE 78; RESP 16; O2SAT 96
[2017-01-25 06:44] VITALS: BP 152/79; PULSE 75; RESP 16; O2SAT 97
[2017-01-25 07:38] VITALS: BP 149/79; PULSE 71; RESP 20; TEMP 99.3; O2SAT 96
== END 2017-01-25 15:26 | disposition home or self-care (01) ==
LOC: NEPC 18:35 → NEPD 01-25 15:26
DX: D69.6 Thrombocytopenia, unspecified (principal); K76.89 Other specified diseases of liver; R51 Headache; E11.9 Type 2 diabetes mellitus without complications; Z72.0 Tobacco use; Z79.84 Long term (current) use of oral hypoglycemic drugs; Z86.59 Personal history of other mental and behavioral disorders; Z87.19 Personal history of other diseases of the digestive system
CPT/HCPCS: 70450; 80048; 80076; 80307; 85025; 85610; 85730

== ENCOUNTER 2017-01-28 21:03 | Emergency (ER) | payer OTHER ==
[~2017-01-28] VITALS: Ht 170.2 cm; Wt 84.1 kg
[2017-01-28 22:17] VITALS: BP 128/75; PULSE 86; RESP 16; TEMP 98.5; O2SAT 99
--- NOTE | 2017-01-28 22:38 | PD ---
HPI Chief Complaint: Psychiatric Symptoms Time Seen by Provider: 22:20 Travel History International Travel<30 days: No Contact w/Intl Traveler<30days: No Traveled to known affect area: No History of Present Illness HPI This is a 56-year-old male who presents under ex parte initiated by and filed by his [id number] and siblings. According to the paperwork the patient has issues with alcohol abuse and resultant liver failure, makes poor decisions. It appears that this patient was already medically cleared here on January 24 after being sent here from [facility] for medical clearance. He has a history of thrombocytopenia and according to his paperwork this makes and beyond the scope the scope of care [facility]. He has no medical complaints at this time. He is a somewhat poor historian. PFSH Past Medical History Arthritis: No Asthma: No Autoimmune Disease: No Anxiety: Yes Depression: Yes Heart Rhythm Problems: No Cancer: No Cardiovascular Problems: No High Cholesterol: No Chemotherapy: No Congestive Heart Failure: No COPD: No Cerebrovascular Accident: No Diabetes: Yes Diminished Hearing: No Endocrine: Yes Gastrointestinal Disorders: Yes GERD: Yes Genitourinary: No Hepatitis: Yes (HEP C) Hiatal Hernia: No Immune Disorder: No Kidney Stones: No Musculoskeletal: No Neurologic: No Psychiatric: Yes Reproductive: No Respiratory: No Migraines: No Radiation Therapy: No Renal Failure: No Seizures: No Sickle Cell Disease: No Sleep Apnea: No Thyroid Disease: No Ulcer: Yes Tetanus Vaccination: Unknown Past Surgical History Abdominal Surgery: No AICD: No Arteriovenous Shunt: No Cardiac Surgery: No Ear Surgery: No Endocrine Surgery: No Eye Surgery: No Genitourinary Surgery: No Gynecologic Surgery: No Insulin Pump: No Joint Replacement: No Neurologic Surgery: No Oral Surgery: No Pacemaker: No Thoracic Surgery: No Other Surgery: Yes (LEFT CHEEK FX) Social History Alcohol Use: Yes (daily) Tobacco Use: Yes Substance Use: No Allergies-Medications (Allergen,Severity, Reaction): Coded Allergies: No Known Allergies (Unverified , 01/28/17) Reported Meds & Prescriptions Reported Meds & Active Scripts Active Ferrous Sulfate 325 Mg Tab 325 Mg PO BID Propranolol (Propranolol HCl) 10 Mg Tab 10 Mg PO Q12HR [Spironolactone] 25 MG Tab 25 Mg PO BID@,18 Pantoprazole (Pantoprazole Sodium) 40 Mg Tab 40 Mg PO DAILY Lasix (Furosemide) 40 Mg Tab 40 Mg PO DAILY Reported Januvia (Sitagliptin Phosphate) 100 Mg Tab 100 Mg PO DAILY Review of Systems Except as stated in HPI: all other systems reviewed are Neg Physical Exam Narrative GENERAL: Well-developed well-nourished male in no acute distress SKIN: Warm and dry. HEAD: Atraumatic. Normocephalic. EYES: Pupils equal and round. No scleral icterus. No injection or drainage. ENT: No nasal bleeding or discharge. Mucous membranes pink and moist. NECK: Trachea midline. No JVD. CARDIOVASCULAR: Regular rate and rhythm. No murmur appreciated. RESPIRATORY: No accessory muscle use. Clear to auscultation. Breath sounds equal bilaterally. GASTROINTESTINAL: Abdomen soft, non-tender, nondistended. Hepatic and splenic margins not palpable. MUSCULOSKELETAL: No obvious deformities. No edema. NEUROLOGICAL: Awake and alert. No obvious cranial nerve deficits. Motor grossly within normal limits. Normal speech. PSYCHIATRIC: Appropriate mood and affect; insight and judgment normal. Data Data Last Documented VS Vital Signs Date Time Temp Pulse Resp B/P Pulse Ox O2 Delivery O2 Flow Rate FiO2 01/28/17 22:17 98.5 86 16 128/75 99 Orders Complete Blood Count With Diff (01/28/17 22:25) Comprehensive Metabolic Panel (01/28/17 22:25) Psych Screen (01/28/17 22:25) Alcohol Withdrawal Asmt-Ciwa ONCE (01/28/17 23:49) Flumazenil Inj (Romazicon Inj) (01/29/17 00:00) Lorazepam (Ativan) (01/29/17 00:00) Lorazepam Inj (Ativan Inj) (01/29/17 00:00) Lorazepam (Ativan) (01/29/17 00:00) Lorazepam Inj (Ativan Inj) (01/29/17 00:00) Lorazepam Inj (Ativan Inj) (01/29/17 00:00) Lorazepam Inj (Ativan Inj) (01/29/17 00:00) Labs Laboratory Tests Test 01/28/17 23:30 White Blood Count 4.1 TH/MM3 Red Blood Count 3.38 MIL/MM3 Hemoglobin 8.8 GM/DL Hematocrit 27.3 % Mean Corpuscular Volume 80.9 FL Mean Corpuscular Hemoglobin 25.9 PG Mean Corpuscular Hemoglobin 32.0 % Concent Red Cell Distribution Width 24.5 % Platelet Count 70 TH/MM3 Mean Platelet Volume 8.5 FL Neutrophils (%) (Auto) 55.6 % Lymphocytes (%) (Auto) 27.1 % Monocytes (%) (Auto) 13.7 % Eosinophils (%) (Auto) 2.5 % Basophils (%) (Auto) 1.1 % Neutrophils # (Auto) 2.3 TH/MM3 Lymphocytes # (Auto) 1.1 TH/MM3 Monocytes # (Auto) 0.6 TH/MM3 Eosinophils # (Auto) 0.1 TH/MM3 Basophils # (Auto) 0.0 TH/MM3 CBC Comment AUTO DIFF Sodium Level 138 MEQ/L Potassium Level 4.0 MEQ/L Chloride Level 106 MEQ/L Carbon Dioxide Level 24.8 MEQ/L Anion Gap 7 MEQ/L Blood Urea Nitrogen 8 MG/DL Creatinine 0.76 MG/DL Estimat Glomerular Filtration 106 ML/MIN Rate Random Glucose 126 MG/DL Calcium Level 8.0 MG/DL Total Bilirubin 4.1 MG/DL Aspartate Amino Transf 38 U/L (AST/SGOT) Alanine Aminotransferase 17 U/L (ALT/SGPT) Alkaline Phosphatase 137 U/L Total Protein 6.9 GM/DL Albumin 2.2 GM/DL MDM Medical Decision Making Medical Screen Exam Complete: Yes Emergency Medical Condition: Yes Medical Record Reviewed: Yes Differential Diagnosis Alcoholism, cirrhosis, pancytopenia, thrombocytopenia, acute bleed Narrative Course This patient was admitted in October of this year because of pancytopenia. He underwent a GI workup, endoscopy and colonoscopy revealing portal hypertension, gastropathy, gastritis, esophagitis, internal hemorrhoid, proctitis. He also was found to have alcohol related cirrhosis, splenomegaly, portal gastropathy. Mental health screening discussed with the patient. Psychiatric screen ordered. The patient's lab work has been reviewed. His platelet count is stable from previous labs. He is medically cleared for psychiatric disposition. Diagnosis Primary Impression: ETOH abuse Additional Impression: Thrombocytopenia Gustavo Cruz Jan 28, 2017 22:38
[2017-01-29] MEDS ORDERED: LORazepam 1 MG TAB PO PRN
[2017-01-29] MEDS ORDERED: FLUMAZENIL 0.5 MG/5 ML VIAL IV PUSH PRN
[2017-01-29] MEDS ORDERED: LORazepam 2 MG/ML VIAL IV PUSH PRN ×4
[2017-01-29] MEDS ORDERED: LORazepam 2 MG TAB PO PRN
[2017-01-29 00:31] LABS: AUTOMATED NEUTROPHIL # 2.3 TH/MM3 (1.8-7.7); BASOPHIL % 1.1 % (0.0-2.0); EOSINOPHIL # 0.1 TH/MM3 (0-0.4); EOSINOPHIL % 2.5 % (0.0-4.0); HEMATOCRIT 27.3 % (39.0-51.0); LYMPH % 27.1 % (9.0-44.0); LYMPHOCYTE # 1.1 TH/MM3 (1.0-4.8); MEAN CELL VOLUME 80.9 FL (80.0-100.0); MEAN CORPUSCULAR HEMOGLOBIN 25.9 PG (27.0-34.0); MONO % 13.7 % (0.0-8.0); NEUT % 55.6 % (16.0-70.0); PLATELET COUNT 70 TH/MM3 (150-450); RED BLOOD COUNT 3.38 MIL/MM3 (4.50-5.90); RED CELL DISTRIBUTION WIDTH 24.5 % (11.6-17.2); WHITE BLOOD COUNT 4.1 TH/MM3 (4.0-11.0)
[2017-01-29 00:40] LABS: HEMO FLAGS AUTO DIFF
[2017-01-29 00:45] LABS: ALT (GPT) 17 U/L (12-78); ANION GAP 7 MEQ/L (5-15); AST (GOT) 38 U/L (15-37); BICARBONATE 24.8 MEQ/L (21.0-32.0); BLOOD UREA NITROGEN 8 MG/DL (7-18); CHLORIDE 106 MEQ/L (98-107); GLOMERULAR FILTRATION RATE 106 ML/MIN (>89); SODIUM (NA) 138 MEQ/L (136-145)
[2017-01-29 00:48] LABS: ALKALINE PHOSPHATASE 137 U/L (45-117); TOTAL BILIRUBIN ADULT 4.1 MG/DL (0.2-1.0)
[2017-01-29 01:26] LABS: PLATELET ESTIMATE SMEAR LOW (NORMAL); PLATELET MORPHOLOGY NORMAL (NORMAL); SCAN/DIFF AUTO DIFF CONFIRMED
[2017-01-29 01:30] LABS: TARGET CELLS 1+ (NORMAL)
[2017-01-29 06:22] VITALS: BP 138/77; PULSE 92; RESP 18; O2SAT 100
== END 2017-01-29 09:52 | disposition home or self-care (01) ==
LOC: NEPB 21:03
DX: F10.10 Alcohol abuse, uncomplicated (principal); D69.6 Thrombocytopenia, unspecified
CPT/HCPCS: 80053; 85025; 99284